=== PATIENT | male | born 1950 | race Caucasian/White ===

== ENCOUNTER 2016-03-27 14:36 | Emergency (ER) | payer BC ==
[~2016-03-27 14:36] MED LIST: /CELE20CA; /ESOM40CA; ALBUTEROL INHALATION; ASPIRIN PO; ATOR1TAB21 PO; CELE50CA; CENTTAB PO; CIPR500T19; COLA100C2 OR; COUM1TAB19 PO; COUM2TAB10 PO; COUMADIN PO; CRESTOR PO; FENOFIBRATE PO; FISH1000 PO; FLAG500T; FLEXERIL10 PO; FOLI1TAB; FOLI1TAB2 PO; GABA300C3 PO; KLON0.5T PO; KLONIPIN PO; LISI10TA4 PO; LISIPOW PO; MAGN250T11 PO; METF500T PO; METH2.5T; METH2.5TA PO; METO25TA2 PO; METO25TA74 PO; MIRA33504 PO; MULT1TAB8 PO; MYLI40DR OR; NABUPOW PO; NAPROSY500 PO; NEXI40CA PO; OREN1INJ SC; ORENCIA IV; PREG50CA OR; QUININE325 PO; REQU0.5T PO; RHINOAEROS; TESSALO100 PO; TYLENOL PO; ULTRAM50 PO; VALS40TA; VICO5TAB OR; VITA-122 PO; ZITHROM500 PO
--- NOTE | 2016-03-27 17:18 | EDDOCDS ---
Nurse's Notes [facility] Name: Yousif Lees Age: 65 yrs Sex: Male : 1950 Arrival Date: 03/27/2016 Time: 14:36 Bed PR Private MD: Dolly Addison PA-C Diagnosis: Contusion of right foot Presentation: 03/27 14:47 Presenting complaint: Patient states: pt c/o right foot pain x 1 week. Denies known ead injury or wound. States "it's got big, black spots on it.". Adult Sepsis Screening: The patient does not have new or worsening altered mentation. Patient's respiratory rate is less than 22. Systolic blood pressure is greater than 100. Patient has a qSOFA score of 0- Negative Sepsis Screen. Suicide/Homicide risk assessment- the patient denies having any suicidal and/or homicidal ideations and does not present with any other emotional, behavioral or mental health complaints. Status: Patient is not a business services vice president or dependent. Transition of care: patient was not received from another setting of care. 14:47 Acuity: KRISTEN Level 4 ead 14:47 Method Of Arrival: Walkin/Carried/Asstd ead Triage Assessment: 14:52 General: Appears in no apparent distress, comfortable, well nourished, well groomed, ead Behavior is appropriate for age, cooperative. Pain: Location: right foot Pain currently is 6 out of 10 on a pain scale. HIV screening NA for this visit Offered previously. Derm: Reports "big, black spots.". Musculoskeletal: Reports pain in right foot since 1 week ago. Historical: - Allergies: no known allergies; - Home Meds: 1. warfarin 2 mg Oral tab 1 tab once daily 2. Centrum Silver 0.4-300-250 mg-mcg-mcg oral tab 1 tab daily 3. Fish Oil 4000 units Oral daily 4. folic acid 1 mg Oral tab 1 tab once daily 5. Klonopin 0.5 mg Oral tab 2 tabs nightly 6. lisinopril 10 mg Oral tab 1 tab once daily 7. metformin 500 mg Oral tr24 1 tab twice a day 8. Methotrexate (Anti-Rheumatic) Oral 2.5 mg weekly 9. metoprolol tartrate 50 mg Oral tab 1 tab once daily 10. Nexium 40 mg Oral cpDR 1 cap once daily 11. Orencia 250 mcg monthly 12. Requip 0.5 mg Oral tab 2 tabs nightly 13. Cymbalta 60 mg Oral cpDR 1 cap once daily - PMHx: Diabetes - NIDDM: controlled; Hypertension; Rheumatoid Arthritis; GERD; Diverticulitis; "clonic disorder."; - PSHx: Aortic Valve Replacement, Mechanical (September 27, 2010); Colon Resection; Hernia repair; - Social history: Smoking status: Patient states former smoker of tobacco. No barriers to communication noted, The patient speaks fluent Taiwanese, Speaks appropriately for age. - Family history: Not pertinent. - : The pt / caregiver states he / she is on anticoagulants: coumadin. Home medication list is obtained from the patient, [employer] import data. - Exposure Risk Screening:: None identified. Screenin:16 Screening information is obtained from the patient. Fall risk: No risks identified. mlb1 Assistance ADL's: requires no assistance with activities of daily living. Abuse/DV Screen: The patient / caregiver reports he/she is: not in a situation that causes fear, pain or injury. Nutritional screening: No deficits noted. Advance Directives: Currently, there is no health care proxy. home support is adequate. Assessment: 16:15 General: Appears in no apparent distress, comfortable, Behavior is appropriate for age, ead cooperative, pleasant. Neurological: No deficits noted. Musculoskeletal: Range of motion intact in all extremities. Reports pain in right foot. 17:15 General: Appears in no apparent distress, comfortable, Behavior is appropriate for age, mlb1 cooperative. Pain: Location: right foot Pain currently is 6 out of 10 on a pain scale. Neurological: No deficits noted. Musculoskeletal: Range of motion intact in all extremities. Vital Signs: 14:37 BP 135 / 68; Pulse 66; Resp 18 S; Temp 96.0(O); Pulse Ox 99% on R/A; Weight 83.91 kg gr2 (R); Height 5 ft. 6 in. (167.64 cm) (R); Pain 7/10; 17:16 BP 170 / 90 RA Sitting (auto/reg); Pulse 68; Resp 16; Temp 98.6; Pulse Ox 98% ; Pain jrd 5/10; 14:37 Body Mass Index 29.86 (83.91 kg, 167.64 cm) gr2 Vitals: 14:37 Log In Time: March 27, 2016 at 14:37. gr2 ED Course: 14:37 Patient visited by Ran Herrera. gr2 14:37 Dolly Addison is Private Physician. gr2 14:37 Patient moved to Waiting gr2 14:38 Patient moved to Pre RCE sew 14:39 Patient visited by Ran Herrera. gr2 14:48 Triage Initiated ead 15:28 Patient moved to Triage 3 mlb1 15:29 Patient visited by Trupti Laird,FLOR. ead 16:11 Patient visited by Yas Díaz,FLOR. ck1 16:13 Danny Ramirez PA is PHCP. mo1 16:13 Roya Khanna MD is Attending Physician. mo1 16:15 The patient / caregiver is instructed regarding the plan of care and ED course. ead 16:19 Patient visited by Danny Ramirez PA. mo1 16:24 Patient moved to TR2 ead 16:58 [facility] Payment Agreement was scanned into [employer] and attached to record. gjb 16:59 Patient visited by Yas Díaz,FLOR. ck1 16:59 Patient moved to PR1 / 25 ck1 17:09 Dolly Addison is Referral Physician. mo1 17:16 Patient visited by Rogelio Marley PCA. jrd 17:16 No IV's were initiated during this patient's visit. No procedures done that require mlb1 assistance. 17:17 Patient visited by Danny Hudson RN. mlb1 Order Results: There are currently no results for this order. Outcome: 17:10 Discharge ordered by Provider. mo1 17:16 Discharge Assessment: Patient awake, alert and oriented x 3. No cognitive and/or mlb1 functional deficits noted. Patient verbalized understanding of disposition instructions. patient administered narcotics - no. The following High Risk Discharge criteria are identified: None. Discharged to home ambulatory. Condition: good. Discharge instructions given to patient, Instructed on discharge instructions, follow up and referral plans. medication usage, no driving heavy equipment, Demonstrated understanding of instructions, medications, Pt was receptive of discharge instructions/ teaching. Prescriptions given X 1. No special radiology studies were completed. Property sent home with patient. 17:17 Patient left the ED. mlb1 Signatures: Danny Hudson, RN RN mlb1 Yas Díaz,RN RN ck1 Roya Foy Gainslee gr2 Danny Ramirez PA PA mo1 Trupti Laird,RN RN courtd Rogelio Marley, [employer] MANAGER d Belia Robbins MTDD
--- NOTE | 2016-03-27 17:18 | EDDOCDS ---
Physician Documentation [facility] Name: Yousif Lees Age: 65 yrs Sex: Male : 1950 Arrival Date: 03/27/2016 Time: 14:36 Bed PR Private MD: Dolly Addison PA-C Disposition: 03/27/16 17:10 Discharged to Home/Self Care. Impression: Contusion of right foot. - Condition is Stable. - Discharge Instructions: Elastic Bandage and RICE, Foot Contusion. - Prescriptions for Drewsey 5- 325 mg Oral Tablet - take 1 tablet by ORAL route every 6 hours As needed MDD: 4 tabs; 12 tablet. - Medication Reconciliation, Local Pharmacy Hours form. - Follow up: Dolly Addison; When: Call to arrange an appointment; Reason: Recheck today's complaints, Continuance of care. - Problem is new. - Symptoms are unchanged. Historical: - Allergies: no known allergies; - Home Meds: 1. warfarin 2 mg Oral tab 1 tab once daily 2. Centrum Silver 0.4-300-250 mg-mcg-mcg oral tab 1 tab daily 3. Fish Oil 4000 units Oral daily 4. folic acid 1 mg Oral tab 1 tab once daily 5. Klonopin 0.5 mg Oral tab 2 tabs nightly 6. lisinopril 10 mg Oral tab 1 tab once daily 7. metformin 500 mg Oral tr24 1 tab twice a day 8. Methotrexate (Anti-Rheumatic) Oral 2.5 mg weekly 9. metoprolol tartrate 50 mg Oral tab 1 tab once daily 10. Nexium 40 mg Oral cpDR 1 cap once daily 11. Orencia 250 mcg monthly 12. Requip 0.5 mg Oral tab 2 tabs nightly 13. Cymbalta 60 mg Oral cpDR 1 cap once daily - PMHx: Diabetes - NIDDM: controlled; Hypertension; Rheumatoid Arthritis; GERD; Diverticulitis; "clonic disorder."; - PSHx: Aortic Valve Replacement, Mechanical (September 27, 2010); Colon Resection; Hernia repair; - Social history: Smoking status: Patient states former smoker of tobacco. No barriers to communication noted, The patient speaks fluent [place] Islander, Speaks appropriately for age. - Family history: Not pertinent. - : The pt / caregiver states he / she is on anticoagulants: coumadin. Home medication list is obtained from the patient, [employer] import data. - Exposure Risk Screening:: None identified. Vital Signs: 03/27 14:37 BP 135 / 68; Pulse 66; Resp 18 S; Temp 96.0(O); Pulse Ox 99% on R/A; Weight 83.91 kg / gr2 184.99 lbs (R); Height 5 ft. 6 in. (167.64 cm) (R); Pain 7/10; 17:16 BP 170 / 90 RA Sitting (auto/reg); Pulse 68; Resp 16; Temp 98.6; Pulse Ox 98% ; Pain jrd 5/10; 14:37 Body Mass Index 29.86 (83.91 kg, 167.64 cm) gr2 MDM: 16:22 Calcaneus Ordered. [facility] 16:58 [facility] [place] Agreement was scanned into [employer] and attached to record. serina 16:58 Financial registration complete. kanika Signatures: Dispatcher [employer] EDCA Danny Hudson RN RN mlb1 Danny Ramirez PA PA mo1 Trupti Laird,RN RN Belia Ellis The chart was reviewed and I authenticate all verbal orders and agree with the evaluation and treatment provided.Attachments: 16:58 [facility] [place] [facility] ALISSA
--- NOTE | 2016-03-27 17:29 | REP ---
RIGHT OS CALCIS, TWO VIEWS: HISTORY: Hematoma. There is no acute fracture or dislocation. An osteophyte is present on the inferior calcaneus. Soft tissue swelling is present. IMPRESSION: There is no acute fracture or dislocation. Signed by Joey Gaytan MD 03/28/2016 08:43 A
--- NOTE | 2016-03-29 18:19 | EDDOCDS ---
Physician Documentation [facility] Name: Yousif Lees Age: 65 yrs Sex: Male : 1950 Arrival Date: 03/27/2016 Time: 14:36 Bed PR Private MD: Dolly Addison PA-C Disposition: 03/27/16 17:10 Discharged to Home/Self Care. Impression: Contusion of right foot. - Condition is Stable. - Discharge Instructions: Elastic Bandage and RICE, Foot Contusion. - Prescriptions for Rowe 5- 325 mg Oral Tablet - take 1 tablet by ORAL route every 6 hours As needed MDD: 4 tabs; 12 tablet. - Medication Reconciliation, Local Pharmacy Hours form. - Follow up: Dolly Addison; When: Call to arrange an appointment; Reason: Recheck today's complaints, Continuance of care. - Problem is new. - Symptoms are unchanged. Historical: - Allergies: no known allergies; - Home Meds: 1. warfarin 2 mg Oral tab 1 tab once daily 2. Centrum Silver 0.4-300-250 mg-mcg-mcg oral tab 1 tab daily 3. Fish Oil 4000 units Oral daily 4. folic acid 1 mg Oral tab 1 tab once daily 5. Klonopin 0.5 mg Oral tab 2 tabs nightly 6. lisinopril 10 mg Oral tab 1 tab once daily 7. metformin 500 mg Oral tr24 1 tab twice a day 8. Methotrexate (Anti-Rheumatic) Oral 2.5 mg weekly 9. metoprolol tartrate 50 mg Oral tab 1 tab once daily 10. Nexium 40 mg Oral cpDR 1 cap once daily 11. Orencia 250 mcg monthly 12. Requip 0.5 mg Oral tab 2 tabs nightly 13. Cymbalta 60 mg Oral cpDR 1 cap once daily - PMHx: Diabetes - NIDDM: controlled; Hypertension; Rheumatoid Arthritis; GERD; Diverticulitis; "clonic disorder."; - PSHx: Aortic Valve Replacement, Mechanical (September 27, 2010); Colon Resection; Hernia repair; - Social history: Smoking status: Patient states former smoker of tobacco. No barriers to communication noted, The patient speaks fluent Brazilian, Speaks appropriately for age. - Family history: Not pertinent. - : The pt / caregiver states he / she is on anticoagulants: coumadin. Home medication list is obtained from the patient, [employer] import data. - Exposure Risk Screening:: None identified. Vital Signs: 03/27 14:37 BP 135 / 68; Pulse 66; Resp 18 S; Temp 96.0(O); Pulse Ox 99% on R/A; Weight 83.91 kg / gr2 184.99 lbs (R); Height 5 ft. 6 in. (167.64 cm) (R); Pain 7/10; 17:16 BP 170 / 90 RA Sitting (auto/reg); Pulse 68; Resp 16; Temp 98.6; Pulse Ox 98% ; Pain jrd 5/10; 14:37 Body Mass Index 29.86 (83.91 kg, 167.64 cm) gr2 MDM: 16:22 Calcaneus Ordered. [facility] 16:58 [facility] [place] Payment Agreement was scanned into [employer] and attached to record. [facility] 16:58 Financial registration complete. [facility] 03/28 11:05 T-Sheet-- Draft Copy was scanned into [employer] and attached to record. gb Signatures: Dispatcher [employer] EDMS Zhane Maynard, Reg Reg gb Danny Hudson, RN RN mlb1 Danny Ramirez PA PA mo1 Trupti Laird,RN RN Belia Ellis The chart was reviewed and I authenticate all verbal orders and agree with the evaluation and treatment provided.Attachments: 03/27 16:58 [facility] [place] Payment Agreement [facility] 03/28 11:05 T-Sheet-- Draft Copy gb Chart Complete MTDD
--- NOTE | 2016-03-29 18:19 | EDDOCDS ---
Physician Documentation [facility] Name: Yousif Lees Age: 65 yrs Sex: Male : 1950 Arrival Date: 03/27/2016 Time: 14:36 Bed PR Private MD: Dolly Addison PA-C Disposition: 03/27/16 17:10 Discharged to Home/Self Care. Impression: Contusion of right foot. - Condition is Stable. - Discharge Instructions: Elastic Bandage and RICE, Foot Contusion. - Prescriptions for Mershon 5- 325 mg Oral Tablet - take 1 tablet by ORAL route every 6 hours As needed MDD: 4 tabs; 12 tablet. - Medication Reconciliation, Local Pharmacy Hours form. - Follow up: Dolly Addison; When: Call to arrange an appointment; Reason: Recheck today's complaints, Continuance of care. - Problem is new. - Symptoms are unchanged. Historical: - Allergies: no known allergies; - Home Meds: 1. warfarin 2 mg Oral tab 1 tab once daily 2. Centrum Silver 0.4-300-250 mg-mcg-mcg oral tab 1 tab daily 3. Fish Oil 4000 units Oral daily 4. folic acid 1 mg Oral tab 1 tab once daily 5. Klonopin 0.5 mg Oral tab 2 tabs nightly 6. lisinopril 10 mg Oral tab 1 tab once daily 7. metformin 500 mg Oral tr24 1 tab twice a day 8. Methotrexate (Anti-Rheumatic) Oral 2.5 mg weekly 9. metoprolol tartrate 50 mg Oral tab 1 tab once daily 10. Nexium 40 mg Oral cpDR 1 cap once daily 11. Orencia 250 mcg monthly 12. Requip 0.5 mg Oral tab 2 tabs nightly 13. Cymbalta 60 mg Oral cpDR 1 cap once daily - PMHx: Diabetes - NIDDM: controlled; Hypertension; Rheumatoid Arthritis; GERD; Diverticulitis; "clonic disorder."; - PSHx: Aortic Valve Replacement, Mechanical (September 27, 2010); Colon Resection; Hernia repair; - Social history: Smoking status: Patient states former smoker of tobacco. No barriers to communication noted, The patient speaks fluent Taiwanese, Speaks appropriately for age. - Family history: Not pertinent. - : The pt / caregiver states he / she is on anticoagulants: coumadin. Home medication list is obtained from the patient, [employer] import data. - Exposure Risk Screening:: None identified. Vital Signs: 03/27 14:37 BP 135 / 68; Pulse 66; Resp 18 S; Temp 96.0(O); Pulse Ox 99% on R/A; Weight 83.91 kg / gr2 184.99 lbs (R); Height 5 ft. 6 in. (167.64 cm) (R); Pain 7/10; 17:16 BP 170 / 90 RA Sitting (auto/reg); Pulse 68; Resp 16; Temp 98.6; Pulse Ox 98% ; Pain jrd 5/10; 14:37 Body Mass Index 29.86 (83.91 kg, 167.64 cm) gr2 MDM: 16:22 Calcaneus Ordered. [facility] 16:58 [facility] [place] was scanned into [employer] and attached to record. [facility] 16:58 Financial registration complete. [facility] 03/28 11:05 T-Sheet-- Draft Copy was scanned into [employer] and attached to record. gb Signatures: Dispatcher [employer] EDMS Zhane Maynard, Reg Reg gb Danny Hudson, RN RN mlb1 Danny Ramirez PA PA mo1 Trupti Laird,RN RN Belia Ellis The chart was reviewed and I authenticate all verbal orders and agree with the evaluation and treatment provided.Attachments: 03/27 16:58 [facility] [place] [facility] 03/28 11:05 T-Sheet-- Draft Copy gb Chart Complete MTDD
--- NOTE | 2016-03-29 18:20 | EDDOCDS ---
Nurse's Notes [facility] Name: Yousif Lees Age: 65 yrs Sex: Male : 1950 Arrival Date: 03/27/2016 Time: 14:36 Bed PR Private MD: Dolly Addison PA-C Diagnosis: Contusion of right foot Presentation: 03/27 14:47 Presenting complaint: Patient states: pt c/o right foot pain x 1 week. Denies known ead injury or wound. States "it's got big, black spots on it.". Adult Sepsis Screening: The patient does not have new or worsening altered mentation. Patient's respiratory rate is less than 22. Systolic blood pressure is greater than 100. Patient has a qSOFA score of 0- Negative Sepsis Screen. Suicide/Homicide risk assessment- the patient denies having any suicidal and/or homicidal ideations and does not present with any other emotional, behavioral or mental health complaints. Status: Patient is not a medical service technician or dependent. Transition of care: patient was not received from another setting of care. 14:47 Acuity: KRISTEN Level 4 ead 14:47 Method Of Arrival: Walkin/Carried/Asstd ead Triage Assessment: 14:52 General: Appears in no apparent distress, comfortable, well nourished, well groomed, ead Behavior is appropriate for age, cooperative. Pain: Location: right foot Pain currently is 6 out of 10 on a pain scale. HIV screening NA for this visit Offered previously. Derm: Reports "big, black spots.". Musculoskeletal: Reports pain in right foot since 1 week ago. Historical: - Allergies: no known allergies; - Home Meds: 1. warfarin 2 mg Oral tab 1 tab once daily 2. Centrum Silver 0.4-300-250 mg-mcg-mcg oral tab 1 tab daily 3. Fish Oil 4000 units Oral daily 4. folic acid 1 mg Oral tab 1 tab once daily 5. Klonopin 0.5 mg Oral tab 2 tabs nightly 6. lisinopril 10 mg Oral tab 1 tab once daily 7. metformin 500 mg Oral tr24 1 tab twice a day 8. Methotrexate (Anti-Rheumatic) Oral 2.5 mg weekly 9. metoprolol tartrate 50 mg Oral tab 1 tab once daily 10. Nexium 40 mg Oral cpDR 1 cap once daily 11. Orencia 250 mcg monthly 12. Requip 0.5 mg Oral tab 2 tabs nightly 13. Cymbalta 60 mg Oral cpDR 1 cap once daily - PMHx: Diabetes - NIDDM: controlled; Hypertension; Rheumatoid Arthritis; GERD; Diverticulitis; "clonic disorder."; - PSHx: Aortic Valve Replacement, Mechanical (September 27, 2010); Colon Resection; Hernia repair; - Social history: Smoking status: Patient states former smoker of tobacco. No barriers to communication noted, The patient speaks fluent [place], Speaks appropriately for age. - Family history: Not pertinent. - : The pt / caregiver states he / she is on anticoagulants: coumadin. Home medication list is obtained from the patient, [employer] import data. - Exposure Risk Screening:: None identified. Screenin:16 Screening information is obtained from the patient. Fall risk: No risks identified. mlb1 Assistance ADL's: requires no assistance with activities of daily living. Abuse/DV Screen: The patient / caregiver reports he/she is: not in a situation that causes fear, pain or injury. Nutritional screening: No deficits noted. Advance Directives: Currently, there is no health care proxy. home support is adequate. Assessment: 16:15 General: Appears in no apparent distress, comfortable, Behavior is appropriate for age, ead cooperative, pleasant. Neurological: No deficits noted. Musculoskeletal: Range of motion intact in all extremities. Reports pain in right foot. 17:15 General: Appears in no apparent distress, comfortable, Behavior is appropriate for age, mlb1 cooperative. Pain: Location: right foot Pain currently is 6 out of 10 on a pain scale. Neurological: No deficits noted. Musculoskeletal: Range of motion intact in all extremities. Vital Signs: 14:37 BP 135 / 68; Pulse 66; Resp 18 S; Temp 96.0(O); Pulse Ox 99% on R/A; Weight 83.91 kg gr2 (R); Height 5 ft. 6 in. (167.64 cm) (R); Pain 7/10; 17:16 BP 170 / 90 RA Sitting (auto/reg); Pulse 68; Resp 16; Temp 98.6; Pulse Ox 98% ; Pain jrd 5/10; 14:37 Body Mass Index 29.86 (83.91 kg, 167.64 cm) gr2 Vitals: 14:37 Log In Time: March 27, 2016 at 14:37. gr2 ED Course: 14:37 Patient visited by Ran Herrera. gr2 14:37 Dolly Addison is Private Physician. gr2 14:37 Patient moved to Waiting gr2 14:38 Patient moved to Pre RCE sew 14:39 Patient visited by Ran Herrera. gr2 14:48 Triage Initiated ead 15:28 Patient moved to Triage 3 mlb1 15:29 Patient visited by Trupti Laird,RN. ead 16:11 Patient visited by Yas Díaz,FLOR. ck1 16:13 Danny Ramirez PA is PHCP. mo1 16:13 Roya Khanna MD is Attending Physician. mo1 16:15 The patient / caregiver is instructed regarding the plan of care and ED course. ead 16:19 Patient visited by Danny Ramirez PA. mo1 16:24 Patient moved to TR2 ead 16:58 [facility] Payment Agreement was scanned into [employer] and attached to record. gjb 16:59 Patient visited by Yas Díaz,FLOR. ck1 16:59 Patient moved to PR1 / 25 ck1 17:09 Dolly Addison is Referral Physician. mo1 17:16 Patient visited by Rogelio Marley PCA. jrd 17:16 No IV's were initiated during this patient's visit. No procedures done that require mlb1 assistance. 17:17 Patient visited by Danny Hudson RN. mlb1 18:10 Calcaneus Returned. EDMS 03/28 11:05 T-Sheet-- Draft Copy was scanned into [employer] and attached to record. gb Order Results: Radiology Order: Calcaneus Test: Calcaneus REASON FOR EXAMINATION: plantar hematoma calcaneal; RIGHT OS CALCIS, TWO VIEWS:; ; HISTORY: Hematoma.; ; There is no acute fracture or dislocation. An osteophyte is present on the; inferior calcaneus. Soft tissue swelling is present.; ; IMPRESSION:; ; There is no acute fracture or dislocation.; ; ; Signed by; Joey Gaytan MD 03/28/2016 08:43 A; Outcome: 03/27 17:10 Discharge ordered by Provider. mo1 17:16 Discharge Assessment: Patient awake, alert and oriented x 3. No cognitive and/or mlb1 functional deficits noted. Patient verbalized understanding of disposition instructions. patient administered narcotics - no. The following High Risk Discharge criteria are identified: None. Discharged to home ambulatory. Condition: good. Discharge instructions given to patient, Instructed on discharge instructions, follow up and referral plans. medication usage, no driving heavy equipment, Demonstrated understanding of instructions, medications, Pt was receptive of discharge instructions/ teaching. Prescriptions given X 1. No special radiology studies were completed. Property sent home with patient. 17:17 Patient left the ED. mlb1 Signatures: Dispatcher [employer] EDMS Zhane Maynard, Prosper Reg Danny Belcher RN RN mlb1 Yas Díaz RN RN ck1 Roya Foy Gainslee gr2 Danny Ramirez PA PA mo1 Trupti Laird,RN RN Rogelio Lee PCA PCA jrd Beck, Gabriela gjb Chart Complete ALISSA
== END 2016-03-27 17:17 | disposition home or self-care (01) ==
LOC: M ED 14:36
DX: S90.31XA Contusion of right foot, initial encounter (principal); X58.XXXA Exposure to other specified factors, initial encounter; Y92.019 Unspecified place in single-family (private) house as the place of occurrence of the external cause; Y93.89 Activity, other specified; Y99.8 Other external cause status; M77.31 Calcaneal spur, right foot; E11.9 Type 2 diabetes mellitus without complications; I10 Essential (primary) hypertension; M05.40 Rheumatoid myopathy with rheumatoid arthritis of unspecified site; K21.9 Gastro-esophageal reflux disease without esophagitis; K57.32 Diverticulitis of large intestine without perforation or abscess without bleeding; G40.909 Epilepsy, unspecified, not intractable, without status epilepticus; Z79.01 Long term (current) use of anticoagulants; Z79.84 Long term (current) use of oral hypoglycemic drugs; Z79.899 Other long term (current) drug therapy

== ENCOUNTER → 2016-05-09 | Outpatient (REF) | payer BC ==
[2016-05-09 13:10] LABS: BASO % 0.8 % (0.0-1.0); EOS # 0.1 K/mm3 (0.0-0.50); EOS % 2.4 % (0.0-3.0); LARGE UNSTAINED CELL # 0.1 K/mm3 (0.0-0.4); LARGE UNSTAINED CELL % 2.5 % (0.0-4.0); LYMPH # 1.7 K/mm3 (1.5-4.5); LYMPH % 29.2 % (24.0-44.0); MEAN CORPUSCULAR HEMOGLOBIN 31.2 pg (27.0-33.0); MEAN CORPUSCULAR HGB CONC 34.6 g/dl (32.0-36.5); MEAN CORPUSCULAR VOLUME 90.2 fl (80.0-96.0); MONO # 0.6 K/mm3 (0.0-0.8); MONO % 10.8 % (0.0-5.0); NEUTROPHILS % 54.3 % (36.0-66.0); PLATELET COUNT, AUTOMATED 181 k/mm3 (150-450); WHITE BLOOD COUNT 5.4 K/mm3 (4.0-10.0)
[2016-05-09 13:25] LABS: ALBUMIN/GLOBULIN RATIO 1.43 (1.00-1.93); ALKALINE PHOSPHATASE 66 U/L (45-117); ALT/SGPT 33 U/L (12-78); ANION GAP 9 MEQ/L (8-16); AST/SGOT 22 U/L (15-37); BILIRUBIN,TOTAL 0.5 MG/DL (0.2-1.0); BLOOD UREA NITROGEN 10 MG/DL (7-18); CALCIUM LEVEL 9.4 MG/DL (8.8-10.2); CARBON DIOXIDE LEVEL 30 MEQ/L (21-32); CHLORIDE LEVEL 103 MEQ/L (98-107); CHOLESTEROL LEVEL 224 MG/DL (<200); CREATININE FOR GFR 0.87 MG/DL (0.70-1.30); GLOMERULAR FILTRATION RATE > 60.0 (>49); GLUCOSE, FASTING 115 MG/DL (80-110); SODIUM LEVEL 142 MEQ/L (136-145); TOTAL PROTEIN 6.8 GM/DL (6.4-8.2); TRIGLYCERIDES LEVEL 177 MG/DL (<150)
[2016-05-09 13:27] LABS: POTASSIUM SERUM 5.3 MEQ/L (3.5-5.1)
== END ==
LOC: M SFHCADAM 08:02
PROVIDERS: ATTEND Family Medicine
DX: E11.9 Type 2 diabetes mellitus without complications (principal)

== ENCOUNTER → 2016-06-09 | Outpatient (CLI) | payer BC ==
[~2016-06-09] MED LIST changes: +GABA-282 PO; -GABA300C3 PO; +ISOVUE-370 76% 100ML VIAL (Q9967) As Ordered ONE
--- NOTE | 2016-06-09 09:27 | REP ---
CT ANGIOGRAM ABDOMEN AND BILATERAL LOWER EXTREMITIES: CT angiogram abdominal aorta and bilateral lower extremities performed following the intravenous administration of 100 mL of Isovue 370. Sagittal, coronal and MIP reconstruction images performed. There is bibasilar fibroatelectatic change in the lung bases. Calcified granuloma is seen in the right lower lobe. The liver, spleen, adrenals and pancreas appear unremarkable. Subcentimeter cyst is seen in the upper pole of the right kidney. There is no free air or free fluid. There is no bowel wall thickening. Scattered diverticula are seen of the colon. There is no adenopathy. There are mild atherosclerotic calcifications of the abdominal aorta diffusely. There is no aneurysm. There is mild ectasia of the distal abdominal aorta 2.6 cm in AP dimension. Celiac, superior mesenteric and inferior mesenteric arteries are widely patent. Renal arteries are widely patent. There is mild diffuse atherosclerotic calcifications in both common iliac arteries without significant stenosis. Internal iliac arteries are patent bilaterally. There is minimal narrowing of the bilateral external iliac arteries and mild narrowing is seen of the bilateral common femoral arteries. Superficial femoral arteries are widely patent and seen down to the level of the knees. There is no significant stenosis. Right popliteal artery is not visualized, nor are the calf arteries. The left popliteal artery is widely patent. There is mild narrowing of the common peroneal trunk. The anterior tibial, posterior tibial and peroneal arteries are patent but visualization is lost just distal to their origins due to suboptimal contrast bolus with scanning slightly early in the bolus. There is a fluid collection in the iliopsoas muscle which measures approximately 7.2 x 1.9 x 2.2 cm. This most likely represents iliopsoas bursitis. It is not seen on prior CT exams most recently 08/18/2015. There is no high density within the fluid to suggest hemorrhage and no evidence of inflammatory change to suggest abscess. IMPRESSION: No significant stenosis of right lower extremity arteries down to the level of the knee or left lower extremity arteries down to the origin of the trifurcation vessels. Arteries distal to that are not opacified, with early scanning in the contrast bolus. There is also no significant stenosis of intra-abdominal arteries. Left iliopsoas bursitis. Signed by Hoang Gonsalves MD 06/09/2016 03:52 P
== END ==
LOC: M RAD 07:10
PROVIDERS: ATTEND Surgery
DX: E11.621 Type 2 diabetes mellitus with foot ulcer (principal); J98.4 Other disorders of lung; N28.1 Cyst of kidney, acquired
CPT/HCPCS: 75635; Q9967

== ENCOUNTER → 2016-08-18 | Outpatient (REF) | payer BC ==
[~2016-08-18] MED LIST changes: -ISOVUE-370 76% 100ML VIAL (Q9967) As Ordered ONE
[2016-08-18 10:55] LABS: ALBUMIN 3.7 GM/DL (3.2-5.2); ALBUMIN/GLOBULIN RATIO 1.23 (1.00-1.93); ALKALINE PHOSPHATASE 64 U/L (45-117); ALT/SGPT 28 U/L (12-78); ANION GAP 7 MEQ/L (8-16); AST/SGOT 15 U/L (15-37); BILIRUBIN,TOTAL 0.3 MG/DL (0.2-1.0); BLOOD UREA NITROGEN 19 MG/DL (7-18); CARBON DIOXIDE LEVEL 30 MEQ/L (21-32); CHLORIDE LEVEL 104 MEQ/L (98-107); CHOLESTEROL LEVEL 191 MG/DL (<200); GLOMERULAR FILTRATION RATE > 60.0 (>49); GLUCOSE, FASTING 105 MG/DL (80-110); POTASSIUM SERUM 4.9 MEQ/L (3.5-5.1); SODIUM LEVEL 141 MEQ/L (136-145); TOTAL PROTEIN 6.7 GM/DL (6.4-8.2); TRIGLYCERIDES LEVEL 144 MG/DL (<150)
[2016-08-18 11:19] LABS: VITAMIN B12 LEVEL 862 PG/ML
[2016-08-18 11:20] LABS: FOLATE 19.4 NG/ML
== END ==
LOC: M SFHCADAM 08:08
PROVIDERS: ATTEND Family Medicine
DX: R41.0 Disorientation, unspecified (principal); E11.9 Type 2 diabetes mellitus without complications; E78.5 Hyperlipidemia, unspecified

== ENCOUNTER → 2016-08-22 | Outpatient (CLI) | payer BC ==
[2016-08-26 08:06] LABS: PSA TOTAL 0.5 ng/mL (0.0-4.0)
== END ==
LOC: M SMT 11:44
PROVIDERS: ATTEND Urology
DX: Z85.51 Personal history of malignant neoplasm of bladder (principal)

== ENCOUNTER → 2016-10-01 | Outpatient (CLI) | payer BC ==
[~2016-10-01] MED LIST changes: -COUM2TAB10 PO; +COUM2TAB22 PO; -FOLI1TAB2 PO; +FOLI1TAB4 PO; -METF500T PO; +METF500T13 PO; +METO1TAB32 PO; -METO25TA74 PO; -REQU0.5T PO; +REQU1TAB15 PO
--- NOTE | 2016-10-02 07:15 | REP ---
Clinical: Cognitive impairment . Comparison: None . Findings: The ventricles, sulci, and cisterns are normal in position and appearance. Gonsalves-white differentiation is maintained. No acute intracranial hemorrhage, mass/mass effect, pathology or trauma/injury. No evidence for acute infarction. No extra-axial fluid collection. Calvarium is intact. Paranasal sinuses and mastoid air cells are clear. Impression: Normal noncontrast head CT. No evidence for acute intracranial pathology or trauma/injury. Signed by Zack Cantor MD 10/02/2016 07:05 A
== END ==
LOC: M RAD 14:11
PROVIDERS: ATTEND Psychiatry & Neurology Neurology
DX: G31.84 Mild cognitive impairment of uncertain or unknown etiology (principal)

== ENCOUNTER → 2017-02-11 | Outpatient (REF) | payer BC | LOC: M LABDRWAD 12:21 | PROVIDERS: ATTEND Internal Medicine Rheumatology | DX: M06.09 Rheumatoid arthritis without rheumatoid factor, multiple sites (principal); Z79.899 Other long term (current) drug therapy ==

== ENCOUNTER → 2017-02-11 | Outpatient (REF) | payer BC | LOC: M SFHCADAM 09:24 | PROVIDERS: ATTEND Family Medicine | DX: E11.9 Type 2 diabetes mellitus without complications (principal) ==

== ENCOUNTER → 2017-04-02 | Outpatient (CLI) | payer BC | LOC: M ADAMS 10:08 | DX: R05 Cough (principal) | CPT/HCPCS: 71046 ==

== ENCOUNTER → 2017-04-21 | Outpatient (REF) | payer BC ==
[2017-04-21 15:52] LABS: BASO % 0.4 % (0.0-1.0); EOS # 0.1 10^3/uL (0.0-0.50); EOS % 1.5 % (0.0-3.0); HEMATOCRIT 39.5 % (42.0-52.0); HEMOGLOBIN 13.9 g/dl (14.0-18.0); IMMATURE GRANULOCYTE % 0.7 % (0-3.0); LYMPH # 1.5 10^3/uL (1.5-4.5); LYMPH % 20.6 % (24.0-44.0); MEAN CORPUSCULAR HEMOGLOBIN 31.2 pg (27.0-33.0); MEAN CORPUSCULAR HGB CONC 35.2 g/dl (32.0-36.5); MEAN CORPUSCULAR VOLUME 88.6 fl (80.0-96.0); MONO # 0.6 10^3/uL (0.0-0.8); MONO % 7.8 % (0.0-5.0); NEUTROPHILS # 5.1 10^3/uL (1.8-7.7); PLATELET COUNT, AUTOMATED 175 10^3/uL (150-450); RED BLOOD COUNT 4.46 10^6/uL (4.30-6.10); RED CELL DISTRIBUTION WIDTH 12.3 % (11.5-14.5); WHITE BLOOD COUNT 7.4 10^3/uL (4.0-10.0)
[2017-04-21 16:11] LABS: ERYTHROCYTE SEDIMENTATION RATE 3 mm/hr (0-20)
[2017-04-21 16:20] LABS: ALBUMIN 3.9 GM/DL (3.2-5.2); ALBUMIN/GLOBULIN RATIO 1.44 (1.00-1.93); ALKALINE PHOSPHATASE 63 U/L (45-117); ALT/SGPT 39 U/L (12-78); ANION GAP 5 MEQ/L (8-16); AST/SGOT 20 U/L (7-37); BILIRUBIN,TOTAL 0.4 MG/DL (0.2-1.0); BLOOD UREA NITROGEN 18 MG/DL (7-18); C REACTIVE PROTEIN QUANTITATIV < 0.30 MG/DL (0.00-0.30); CALCIUM LEVEL 9.1 MG/DL (8.8-10.2); CARBON DIOXIDE LEVEL 32 MEQ/L (21-32); CHLORIDE LEVEL 102 MEQ/L (98-107); GLOMERULAR FILTRATION RATE > 60.0 (>49); GLUCOSE, FASTING 124 MG/DL (70-100); POTASSIUM SERUM 4.3 MEQ/L (3.5-5.1); SODIUM LEVEL 139 MEQ/L (136-145); TOTAL PROTEIN 6.6 GM/DL (6.4-8.2)
== END ==
LOC: M LABDRAW1 15:04
DX: M06.09 Rheumatoid arthritis without rheumatoid factor, multiple sites (principal); Z79.899 Other long term (current) drug therapy
CPT/HCPCS: 80053

== ENCOUNTER → 2017-04-22 | Outpatient (REF) | payer BC ==
[2017-04-22 13:46] LABS: BF MONONUCLEAR CELL % 77.3 % (0-0); BF POLYMORPHONUCLEAR CELL % 22.7 % (0-0); RBC BODY FLUID 294 10^3/uL (<2); WBC BODY FLUID 538 /uL (0-10)
[2017-04-22 13:47] LABS: APPEARANCE, BODY FLUID CLOUDY (CLEAR); BF DIFF IF INDICATED? YES (NO); SOURCE, BODY FLUID LFT KNEE; SYNOVIAL FLUID COLOR RED (YELLOW)
[2017-04-22 14:42] LABS: CRYSTALS, BODY FLUID NONE SEEN (NONE SEEN); SOURCE, BODY FLUID CRYSTALS LFT KNEE
== END ==
LOC: M LAB REF 13:20
DX: M71.162 Other infective bursitis, left knee (principal)
CPT/HCPCS: 89051

== ENCOUNTER → 2017-05-04 | Outpatient (REF) | payer BC | LOC: M SMT 17:29 | DX: Z85.51 Personal history of malignant neoplasm of bladder (principal) | CPT/HCPCS: 88108 ==

== ENCOUNTER → 2017-06-19 | Outpatient (REF) | payer BC ==
[2017-06-19 12:58] LABS: BASO # 0.1 10^3/uL (0.0-0.2); BASO % 0.8 % (0.0-1.0); EOS # 0.1 10^3/uL (0.0-0.50); EOS % 2.3 % (0.0-3.0); HEMATOCRIT 38.5 % (42.0-52.0); HEMOGLOBIN 13.1 g/dl (13.5-17.5); IMMATURE GRANULOCYTE % 0.3 % (0-3.0); LYMPH # 1.3 10^3/uL (1.5-4.5); LYMPH % 21.4 % (24.0-44.0); MEAN CORPUSCULAR HEMOGLOBIN 30.8 pg (27.0-33.0); MEAN CORPUSCULAR VOLUME 90.4 fl (80.0-96.0); MONO # 0.6 10^3/uL (0.0-0.8); NEUTROPHILS # 4.1 10^3/uL (1.8-7.7); NEUTROPHILS % 65.2 % (36.0-66.0); PLATELET COUNT, AUTOMATED 183 10^3/uL (150-450); RED BLOOD COUNT 4.26 10^6/uL (4.30-6.10); RED CELL DISTRIBUTION WIDTH 13.7 % (11.5-14.5); WHITE BLOOD COUNT 6.2 10^3/uL (4.0-10.0)
[2017-06-19 13:20] LABS: ESTIMATED AVERAGE GLUCOSE 174 MG/DL (60-110); HEMOGLOBIN A1c 7.7 %
[2017-06-19 13:32] LABS: ALBUMIN/GLOBULIN RATIO 1.48 (1.00-1.93); ALKALINE PHOSPHATASE 61 U/L (45-117); ALT/SGPT 47 U/L (12-78); ANION GAP 4 MEQ/L (8-16); AST/SGOT 23 U/L (7-37); BILIRUBIN,TOTAL 0.6 MG/DL (0.2-1.0); BLOOD UREA NITROGEN 14 MG/DL (7-18); CALCIUM LEVEL 9.2 MG/DL (8.8-10.2); CARBON DIOXIDE LEVEL 30 MEQ/L (21-32); CHLORIDE LEVEL 105 MEQ/L (98-107); GLOMERULAR FILTRATION RATE > 60.0 (>49); GLUCOSE, FASTING 141 MG/DL (70-100); POTASSIUM SERUM 4.6 MEQ/L (3.5-5.1); SODIUM LEVEL 139 MEQ/L (136-145); TOTAL PROTEIN 6.7 GM/DL (6.4-8.2)
== END ==
LOC: M SFHCADAM 12:17
DX: E11.69 Type 2 diabetes mellitus with other specified complication (principal)
CPT/HCPCS: 80053

== ENCOUNTER → 2017-06-24 | Outpatient (REF) | payer BC ==
[2017-06-24 13:35] LABS: CPK CREATINE PHOSPHOKINASE 118 U/L (39-308)
== END ==
LOC: M SFHCADAM 11:17
DX: R25.2 Cramp and spasm (principal)
CPT/HCPCS: 82550

== ENCOUNTER → 2017-09-02 | Outpatient (CLI) | payer BC | LOC: M ADAMS 09:09 | DX: R05 Cough (principal) | CPT/HCPCS: 71046 ==

== ENCOUNTER → 2017-09-17 | Outpatient (REF) | payer BC ==
[2017-09-17 13:08] LABS: ESTIMATED AVERAGE GLUCOSE 174 MG/DL (60-110); HEMOGLOBIN A1c 7.7 %
[2017-09-17 13:13] LABS: ALBUMIN 3.8 GM/DL (3.2-5.2); ALBUMIN/GLOBULIN RATIO 1.41 (1.00-1.93); ALKALINE PHOSPHATASE 61 U/L (45-117); ALT/SGPT 35 U/L (12-78); ANION GAP 8 MEQ/L (8-16); AST/SGOT 18 U/L (7-37); BILIRUBIN,TOTAL 0.4 MG/DL (0.2-1.0); BLOOD UREA NITROGEN 20 MG/DL (7-18); CALCIUM LEVEL 9.1 MG/DL (8.8-10.2); CARBON DIOXIDE LEVEL 28 MEQ/L (21-32); CHLORIDE LEVEL 101 MEQ/L (98-107); CREATININE FOR GFR 0.92 MG/DL (0.70-1.30); GLOMERULAR FILTRATION RATE > 60.0 (>49); GLUCOSE, FASTING 167 MG/DL (70-100); SODIUM LEVEL 137 MEQ/L (136-145); TOTAL PROTEIN 6.5 GM/DL (6.4-8.2)
== END ==
LOC: M SFHCADAM 10:16
DX: E11.69 Type 2 diabetes mellitus with other specified complication (principal); R25.2 Cramp and spasm

== ENCOUNTER → 2017-12-11 | Outpatient (REF) | payer BC ==
[2017-12-11 16:59] LABS: BASO % 0.6 % (0.0-1.0); EOS # 0.1 10^3/uL (0.0-0.50); EOS % 1.4 % (0.0-3.0); HEMATOCRIT 40.8 % (42.0-52.0); HEMOGLOBIN 13.8 g/dl (13.5-17.5); IMMATURE GRANULOCYTE % 1.1 % (0-3.0); LYMPH # 1.5 10^3/uL (1.5-4.5); LYMPH % 22.1 % (24.0-44.0); MEAN CORPUSCULAR HEMOGLOBIN 31.8 pg (27.0-33.0); MEAN CORPUSCULAR HGB CONC 33.8 g/dl (32.0-36.5); MONO # 0.6 10^3/uL (0.0-0.8); NEUTROPHILS # 4.4 10^3/uL (1.8-7.7); NEUTROPHILS % 65.8 % (36.0-66.0); PLATELET COUNT, AUTOMATED 200 10^3/uL (150-450); RED BLOOD COUNT 4.34 10^6/uL (4.30-6.10); RED CELL DISTRIBUTION WIDTH 13.1 % (11.5-14.5); WHITE BLOOD COUNT 6.6 10^3/uL (4.0-10.0)
[2017-12-11 17:02] LABS: ALBUMIN 4.2 GM/DL (3.2-5.2); ALBUMIN/GLOBULIN RATIO 1.62 (1.00-1.93); ALKALINE PHOSPHATASE 50 U/L (45-117); ALT/SGPT 37 U/L (12-78); ANION GAP 4 MEQ/L (8-16); AST/SGOT 15 U/L (7-37); BILIRUBIN,TOTAL 0.3 MG/DL (0.2-1.0); BLOOD UREA NITROGEN 19 MG/DL (7-18); CARBON DIOXIDE LEVEL 30 MEQ/L (21-32); CHLORIDE LEVEL 105 MEQ/L (98-107); CREATININE FOR GFR 0.84 MG/DL (0.70-1.30); GLOMERULAR FILTRATION RATE > 60.0 (>49); GLUCOSE, FASTING 106 MG/DL (70-100); NT-PRO BNP 47 PG/ML (<125); POTASSIUM SERUM 4.6 MEQ/L (3.5-5.1); SODIUM LEVEL 139 MEQ/L (136-145); TOTAL PROTEIN 6.8 GM/DL (6.4-8.2); URIC ACID 5.3 MG/DL (3.5-7.2)
[2017-12-11 17:44] LABS: ERYTHROCYTE SEDIMENTATION RATE 4 mm/hr (0-20)
[2017-12-13 08:35] LABS: HEPATITIS B CORE ANTIBODY IGG Negative (Negative)
[2017-12-14 10:15] LABS: HEPATITIS B SURFACE ANTIBODY NEGATIVE (POSITIVE)
[2017-12-14 10:21] LABS: HEPATITIS B SURFACE ANTIGEN NEGATIVE (NEGATIVE)
[2017-12-14 10:45] LABS: HEPATITIS C VIRUS ABY INDEX < 0.0 INDEX (<0.8)
[2017-12-14 10:46] LABS: HIV 1&2 SCREEN CENTAUR NEGATIVE (NEGATIVE)
== END ==
LOC: M SFHCLERA 10:25
DX: M06.09 Rheumatoid arthritis without rheumatoid factor, multiple sites (principal)
CPT/HCPCS: 84550

== ENCOUNTER → 2017-12-11 | Outpatient (CLI) | payer BC | LOC: M LRY 10:37 | DX: M06.09 Rheumatoid arthritis without rheumatoid factor, multiple sites (principal); M11.161 Familial chondrocalcinosis, right knee; M11.162 Familial chondrocalcinosis, left knee; M17.12 Unilateral primary osteoarthritis, left knee; M19.041 Primary osteoarthritis, right hand; M19.042 Primary osteoarthritis, left hand | CPT/HCPCS: 73130 ==

== ENCOUNTER → 2017-12-14 | Outpatient (REF) | payer BC | LOC: M SMT 17:14 | DX: Z85.51 Personal history of malignant neoplasm of bladder (principal) ==

== ENCOUNTER 2017-12-22 15:05 | Outpatient (CLI) | payer BC ==
[2017-12-22] MEDS: ABATACEPT 750 MG OVER 30 MINUTES IV (15:47)
[2017-12-22] MEDS ORDERED: 0.22 MICRON FILTER (METHACHOLINE/OCREVUS) XX (16:00)
== END 2017-12-22 17:00 | disposition home or self-care (01) ==
LOC: M INFU 15:05
DX: M06.09 Rheumatoid arthritis without rheumatoid factor, multiple sites (principal); M17.0 Bilateral primary osteoarthritis of knee
CPT/HCPCS: J0129

== ENCOUNTER → 2017-12-28 | Outpatient (REF) | payer BC ==
[2017-12-28 14:37] LABS: ESTIMATED AVERAGE GLUCOSE 123 MG/DL (60-110); HEMOGLOBIN A1c 5.9 %
== END ==
LOC: M SFHCADAM 08:42
DX: E11.9 Type 2 diabetes mellitus without complications (principal)
CPT/HCPCS: 83036

== ENCOUNTER 2018-01-19 07:36 | Outpatient (CLI) | payer BC ==
[2018-01-19] MEDS ORDERED: FILTER 1.2 MICRON (ADULT TPN/MANNITOL/REMICADE) XX (08:00)
[2018-01-19] MEDS: ABATACEPT 750 MG OVER 30 MINUTES IV (08:39)
== END 2018-01-19 09:20 | disposition home or self-care (01) ==
LOC: M INFU 07:36
DX: M06.09 Rheumatoid arthritis without rheumatoid factor, multiple sites (principal); M17.0 Bilateral primary osteoarthritis of knee; D72.819 Decreased white blood cell count, unspecified; Z79.899 Other long term (current) drug therapy; Z87.891 Personal history of nicotine dependence; Z86.14 Personal history of Methicillin resistant Staphylococcus aureus infection; Z95.2 Presence of prosthetic heart valve
CPT/HCPCS: J0129

== ENCOUNTER 2018-02-16 07:41 | Outpatient (CLI) | payer BC ==
[2018-02-16] MEDS: ABATACEPT 750 MG OVER 30 MINUTES IV (08:30)
[2018-02-16] MEDS: FILTER 1.2 MICRON (ADULT TPN/MANNITOL/REMICADE) XX (08:30)
== END 2018-02-16 09:30 | disposition home or self-care (01) ==
LOC: M INFU 07:41
DX: M06.09 Rheumatoid arthritis without rheumatoid factor, multiple sites (principal); M17.0 Bilateral primary osteoarthritis of knee
CPT/HCPCS: J0129

== ENCOUNTER 2018-03-16 08:18 | Outpatient (CLI) | payer BC ==
[~2018-03-16] VITALS: Ht 172.7 cm; Wt 97.3 kg
[~2018-03-16 08:18] MED LIST changes: +FOLI1TAB11 PO; -FOLI1TAB4 PO; -GABA-282 PO; +GABA-843 PO; +METH2.5T48 PO; -METH2.5TA PO; +REQU0.5T PO; -REQU1TAB15 PO
[2018-03-16] MEDS ORDERED: FILTER 1.2 MICRON (ADULT TPN/MANNITOL/REMICADE) XX ONE (08:30)
[2018-03-16 08:32] VITALS: BP 150/74
[2018-03-16] MEDS ORDERED: ABATACEPT 750 MG OVER 30 MINUTES IV ONE ×2 (09:00)
[2018-03-16 09:33] VITALS: BP 144/77
[2018-03-16 09:55] VITALS: BP 164/77
== END 2018-03-16 10:00 | disposition home or self-care (01) ==
LOC: M INFU 08:18
PROVIDERS: ATTEND Internal Medicine Rheumatology
DX: M06.09 Rheumatoid arthritis without rheumatoid factor, multiple sites (principal); M17.0 Bilateral primary osteoarthritis of knee
CPT/HCPCS: 96365; J0129

== ENCOUNTER → 2018-03-24 | Outpatient (REF) | payer BC ==
[2018-03-24 13:16] LABS: BASO # 0.1 10^3/uL (0.0-0.2); BASO % 0.7 % (0.0-1.0); EOS # 0.1 10^3/uL (0.0-0.50); EOS % 1.8 % (0.0-3.0); HEMATOCRIT 40.1 % (42.0-52.0); HEMOGLOBIN 13.9 g/dl (13.5-17.5); LYMPH # 1.7 10^3/uL (1.5-4.5); LYMPH % 23.8 % (24.0-44.0); MEAN CORPUSCULAR HEMOGLOBIN 31.7 pg (27.0-33.0); MEAN CORPUSCULAR HGB CONC 34.7 g/dl (32.0-36.5); MEAN CORPUSCULAR VOLUME 91.6 fl (80.0-96.0); MONO # 0.8 10^3/uL (0.0-0.8); MONO % 11.8 % (0.0-5.0); NEUTROPHILS # 4.3 10^3/uL (1.8-7.7); NEUTROPHILS % 61.5 % (36.0-66.0); PLATELET COUNT, AUTOMATED 200 10^3/uL (150-450); RED BLOOD COUNT 4.38 10^6/uL (4.30-6.10); WHITE BLOOD COUNT 7.1 10^3/uL (4.0-10.0)
[2018-03-24 13:20] LABS: ALBUMIN 4.1 GM/DL (3.2-5.2); ALT/SGPT 47 U/L (12-78); BILIRUBIN,TOTAL 0.5 MG/DL (0.2-1.0); BLOOD UREA NITROGEN 21 MG/DL (7-18); C REACTIVE PROTEIN QUANTITATIV 0.66 MG/DL (0.00-0.30); CALCIUM LEVEL 9.4 MG/DL (8.8-10.2); CARBON DIOXIDE LEVEL 30 MEQ/L (21-32); CHLORIDE LEVEL 105 MEQ/L (98-107); CREATININE FOR GFR 0.86 MG/DL (0.70-1.30); GLOMERULAR FILTRATION RATE > 60.0 (>49); GLUCOSE, FASTING 107 MG/DL (70-100); POTASSIUM SERUM 4.5 MEQ/L (3.5-5.1); SODIUM LEVEL 139 MEQ/L (136-145); TOTAL PROTEIN 6.5 GM/DL (6.4-8.2)
[2018-03-24 13:51] LABS: ERYTHROCYTE SEDIMENTATION RATE 5 mm/hr (0-20)
[2018-03-24 14:37] LABS: HEMOGLOBIN A1c 6.8 %
== END ==
LOC: M SFHCADAM 09:44
PROVIDERS: ATTEND Family Medicine
DX: M06.09 Rheumatoid arthritis without rheumatoid factor, multiple sites (principal); E11.9 Type 2 diabetes mellitus without complications

== ENCOUNTER 2018-04-13 07:58 | Outpatient (CLI) | payer BC ==
[~2018-04-13] VITALS: Ht 165.1 cm; Wt 97.3 kg
[2018-04-13 08:10] VITALS: BP 143/69
[2018-04-13] MEDS ORDERED: ABATACEPT 750 MG OVER 30 MINUTES IV ONE ×2 (08:15)
[2018-04-13] MEDS ORDERED: FILTER 1.2 MICRON (ADULT TPN/MANNITOL/REMICADE) XX ONE (08:15)
== END 2018-04-13 09:45 | disposition home or self-care (01) ==
LOC: M INFU 07:58
PROVIDERS: ATTEND Internal Medicine Rheumatology
DX: M06.09 Rheumatoid arthritis without rheumatoid factor, multiple sites (principal); M17.0 Bilateral primary osteoarthritis of knee
CPT/HCPCS: 96365; J0129

== ENCOUNTER → 2018-06-29 | Outpatient (REF) | payer MEDICARE ==
[~2018-06-29] MED LIST changes: -/CELE20CA; -/ESOM40CA; +CELE1CAP4; +NEXI1CAP3
[2018-06-29 10:22] LABS: BASO # 0.1 10^3/uL (0.0-0.2); BASO % 0.8 % (0.0-1.0); EOS # 0.2 10^3/uL (0.0-0.50); EOS % 2.7 % (0.0-3.0); HEMATOCRIT 42.4 % (42.0-52.0); HEMOGLOBIN 14.4 g/dl (13.5-17.5); LYMPH # 1.2 10^3/uL (1.5-4.5); LYMPH % 20.7 % (24.0-44.0); MEAN CORPUSCULAR HEMOGLOBIN 32.1 pg (27.0-33.0); MEAN CORPUSCULAR VOLUME 94.6 fl (80.0-96.0); MONO # 0.6 10^3/uL (0.0-0.8); MONO % 10.8 % (0.0-5.0); NEUTROPHILS # 3.8 10^3/uL (1.8-7.7); NEUTROPHILS % 64.5 % (36.0-66.0); PLATELET COUNT, AUTOMATED 198 10^3/uL (150-450); RED BLOOD COUNT 4.48 10^6/uL (4.30-6.10); WHITE BLOOD COUNT 5.9 10^3/uL (4.0-10.0)
[2018-06-29 10:53] LABS: ALT/SGPT 41 U/L (12-78); BILIRUBIN,TOTAL 0.4 MG/DL (0.2-1.0); BLOOD UREA NITROGEN 18 MG/DL (7-18); C REACTIVE PROTEIN QUANTITATIV < 0.30 MG/DL (0.00-0.30); CARBON DIOXIDE LEVEL 33 MEQ/L (21-32); CHLORIDE LEVEL 105 MEQ/L (98-107); CREATININE FOR GFR 0.84 MG/DL (0.70-1.30); GLOMERULAR FILTRATION RATE > 60.0 (>49); GLUCOSE, FASTING 109 MG/DL (70-100); POTASSIUM SERUM 4.5 MEQ/L (3.5-5.1); SODIUM LEVEL 140 MEQ/L (136-145); TOTAL PROTEIN 6.5 GM/DL (6.4-8.2); URIC ACID 6.1 MG/DL (3.5-7.2)
[2018-06-29 14:28] LABS: ERYTHROCYTE SEDIMENTATION RATE 3 mm/hr (0-20)
== END ==
LOC: M SFHCPLAZ 07:45
PROVIDERS: ATTEND Internal Medicine Rheumatology
DX: M06.09 Rheumatoid arthritis without rheumatoid factor, multiple sites (principal); M11.89 Other specified crystal arthropathies, multiple sites
CPT/HCPCS: 36415; 80053; 84550; 85025; 85652; 86140; G0463

== ENCOUNTER → 2018-07-12 | Outpatient (REF) | payer MEDICARE ==
[2018-07-12 20:05] LABS: HEMOGLOBIN A1c 6.5 %
== END ==
LOC: M SFHCADAM 14:58
PROVIDERS: ATTEND Family Medicine
DX: E11.69 Type 2 diabetes mellitus with other specified complication (principal)
CPT/HCPCS: 83036; G0463

== ENCOUNTER → 2018-07-21 | Outpatient (CLI) | payer BC, MEDICARE ==
--- NOTE | 2018-07-21 13:00 | REP ---
The bilateral lower extremity artery Doppler assessment: Right lower extremity: Brachial artery peak systole: 150 mmHg Dorsalis penis peak systole: 155 mmHg ELECTRICIAN SUBSTATION peak systole: 150 mmHg VICTORIANO: 1.0 Peak Systolic Phasicity Velocity MACHINE DESIGN ENGINEER 96.9 triphasic Profunda 76.4 triphasic SFA prox 111.6 triphasic SFA mid 105.8 triphasic SFA dist 97.5 triphasic Pop 70.6 triphasic SASHA prox 39.4 triphasic Tib/P tr 72.3 triphasic ELECTRICIAN SUBSTATION pr 55.8 triphasic ELECTRICIAN SUBSTATION dst 33.4 triphasic SASHA dst 41.7 triphasic Left lower extremity: Brachial artery peak systole: 150 mmHg. Dorsalis pedis peak systole: 120 mmHg. ELECTRICIAN SUBSTATION peak systole: 170 mmHg. VICTORIANO: 1.1 Peak Systolic Phasicity Velocity MACHINE DESIGN ENGINEER 119th triphasic Profunda 70.0 triphasic SFA prox 113.8 triphasic SFA mid 103.4 triphasic SFA dist 63.6 triphasic Pop 69.4 triphasic SASHA prox 55.9 triphasic Tib/P tr 62.9 triphasic ELECTRICIAN SUBSTATION pr 85.6 triphasic ELECTRICIAN SUBSTATION dst 29.9 triphasic SASHA dst 27.7 triphasic Impression: There is mild atheromatous plaque throughout bilaterally. Question of a left MACHINE DESIGN ENGINEER mild stenosis. Electronically Signed by Hoang Valenzuela MD 07/21/2018 12:51 P
== END ==
LOC: M RAD 09:54
PROVIDERS: ATTEND Surgery Vascular Surgery
DX: Z86.79 Personal history of other diseases of the circulatory system (principal)

== ENCOUNTER 2018-08-17 13:33 | Emergency (ER) | payer MEDICARE ==
[~2018-08-17] VITALS: Ht 172.7 cm; Wt 84.1 kg
[2018-08-17] MEDS ORDERED: METF10004 (13:43)
[2018-08-17] MEDS ORDERED: MORPHINE 4 MG/ML 1ML VIAL/SYRINGE (J2270) IV ONE ×2 (15:30→18:30)
[2018-08-17] MEDS ORDERED: NS 1,000 ML IV ONE (15:30)
[2018-08-17] MEDS ORDERED: ONDANSETRON 4MG/2ML VIAL (J2405) IV ONE (15:30)
[2018-08-17 16:20] LABS: BASO # 0.1 10^3/uL (0.0-0.2); BASO % 0.6 % (0.0-1.0); EOS # 0.2 10^3/uL (0.0-0.50); EOS % 2.7 % (0.0-3.0); HEMATOCRIT 38.1 % (42.0-52.0); HEMOGLOBIN 13.1 g/dl (13.5-17.5); LYMPH # 1.2 10^3/uL (1.5-4.5); LYMPH % 13.1 % (24.0-44.0); MEAN CORPUSCULAR HEMOGLOBIN 32.7 pg (27.0-33.0); MEAN CORPUSCULAR HGB CONC 34.4 g/dl (32.0-36.5); MONO # 0.8 10^3/uL (0.0-0.8); MONO % 8.9 % (0.0-5.0); NEUTROPHILS # 6.5 10^3/uL (1.8-7.7); PLATELET COUNT, AUTOMATED 165 10^3/uL (150-450); RED BLOOD COUNT 4.01 10^6/uL (4.30-6.10); WHITE BLOOD COUNT 8.8 10^3/uL (4.0-10.0)
[2018-08-17 16:30] LABS: INR 2.85; PROTHROMBIN TIME 30.5 SECONDS (12.1-14.4)
[2018-08-17 16:31] LABS: PARTIAL THROMBOPLASTIN TIME 59.2 SECONDS (25.4-37.6)
[2018-08-17 16:48] LABS: ALBUMIN 3.8 GM/DL (3.2-5.2); ALT/SGPT 36 U/L (12-78); BILIRUBIN,DIRECT 0.2 MG/DL (0.0-0.2); BILIRUBIN,TOTAL 0.5 MG/DL (0.2-1.0); BLOOD UREA NITROGEN 13 MG/DL (7-18); CALCIUM LEVEL 8.9 MG/DL (8.8-10.2); CARBON DIOXIDE LEVEL 28 MEQ/L (21-32); CHLORIDE LEVEL 103 MEQ/L (98-107); CREATININE FOR GFR 0.86 MG/DL (0.70-1.30); GLOMERULAR FILTRATION RATE > 60.0 (>49); GLUCOSE, FASTING 113 MG/DL (70-100); LIPASE 103 U/L (73-393); POTASSIUM SERUM 4.2 MEQ/L (3.5-5.1); SODIUM LEVEL 137 MEQ/L (136-145); TOTAL PROTEIN 6.4 GM/DL (6.4-8.2)
[2018-08-17] MEDS ORDERED: ISOVUE-370 76% 100ML VIAL (Q9967) As Ordered ONE (17:18)
--- NOTE | 2018-08-17 18:32 | REPVR ---
EXAM: CT Abdomen and Pelvis With Contrast EXAM DATE/TIME: 08/17/2018 5:32 PM CLINICAL HISTORY: 68 years old, male; Abdominal pain; Generalized; Additional info: Llq pain/constipation TECHNIQUE: Imaging protocol: Axial computed tomography images of the abdomen and pelvis with intravenous contrast. Coronal and sagittal reformatted images were created and reviewed. Radiation optimization: All CT scans at this facility use at least one of these dose optimization techniques: automated exposure control; mA and/or kV adjustment per patient size (includes targeted exams where dose is matched to clinical indication); or iterative reconstruction. Contrast material: ISOVUE 370; Contrast volume: 100 ml; Contrast route: IV; COMPARISON: CT ABD PELVIS WITH CONTRAST 08/18/2015 6:05 PM FINDINGS: Lungs: Calcified granuloma right lung base stable in appearance. Pleural-based noncalcified nodule left lower lobe stable in appearance. Pleural space: Bibasilar pleural thickening with a small focus of pleural calcification on the right stable in appearance. ABDOMEN: Liver: There is a diffuse decrease in hepatic parenchymal density, consistent with fatty infiltration. Gallbladder and bile ducts: Normal. No calcified stones. No ductal dilation. Pancreas: Normal. No ductal dilation. Spleen: Normal. No splenomegaly. Adrenals: Normal. No mass. Kidneys and ureters: Small right renal cyst measures 9 mm. It is otherwise unremarkable. Stomach and bowel: There is a segment of acute inflammation in the mid sigmoid colon with extensive pericolonic inflammation without evidence of a drainable abscess or free air, consistent with acute diverticulitis. Normal anastomosis in the distal colon. Duodenal diverticulum. Appendix: No evidence of appendicitis. PELVIS: Bladder: Unremarkable as visualized. Reproductive: The prostate gland demonstrates mild hyperplasia. ABDOMEN and PELVIS: Intraperitoneal space: Normal. No free air. No significant fluid collection. Bones/joints: The spine demonstrates mild degenerative changes. Moderate central spinal stenosis L4-5 secondary to a disc osteophyte complex. Soft tissues: Unremarkable. Vasculature: The aorta demonstrates mild atherosclerotic calcification. Ectatic. No aneurysm. Lymph nodes: Normal. No enlarged lymph nodes. IMPRESSION: 1. There is a diffuse decrease in hepatic parenchymal density, consistent with fatty infiltration. 2. There is a segment of acute inflammation in the mid sigmoid colon with extensive pericolonic inflammation without evidence of a drainable abscess or free air, consistent with acute diverticulitis. 3. Mild prostatic hyperplasia. COMMENT: Consistent with the [employer] [place] [employer]'s Incidental Findings Committee Report (J Am Carlton Radiol 2010): Unless the patient's specific circumstances suggest otherwise, any liver lesion 0.5 cm or less, any cystic kidney lesion less than 1.0 cm, and/or any adrenal lesion 1.0 cm or less not otherwise characterized in this report as possessing suspicious or indeterminate imaging features is/are highly likely to be benign and do not require follow-up imaging or biopsy. Electronically signed by: Mirza England On 08/17/2018 18:31:43 PM
[2018-08-17] MEDS ORDERED: FLAG500T PO (19:09)
[2018-08-17] MEDS ORDERED: CIPR-249 PO (19:09)
[2018-08-17] MEDS ORDERED: TRAM50TA2 PO (19:09)
[2018-08-17] MEDS ORDERED: CIPROFLOXACIN 500 MG TAB PO ONE (19:15)
[2018-08-17] MEDS ORDERED: metroNIDAZOLE (FLAGYL) 500 MG TAB PO ONE (19:15)
[2018-08-17 19:30] VITALS: BP 149/69
== END 2018-08-17 19:31 | disposition home or self-care (01) ==
LOC: M ED 13:33
DX: K57.32 Diverticulitis of large intestine without perforation or abscess without bleeding (principal); E11.9 Type 2 diabetes mellitus without complications; I10 Essential (primary) hypertension; K21.9 Gastro-esophageal reflux disease without esophagitis; J45.909 Unspecified asthma, uncomplicated; R91.1 Solitary pulmonary nodule; G40.409 Other generalized epilepsy and epileptic syndromes, not intractable, without status epilepticus; D72.819 Decreased white blood cell count, unspecified; Z79.899 Other long term (current) drug therapy; Z79.01 Long term (current) use of anticoagulants; Z79.84 Long term (current) use of oral hypoglycemic drugs
CPT/HCPCS: 74177; 80048; 80076; 81001; 83605; 83690; 85025; 85610; 85730; 96374; 96375; 96376; 99284; J2270; J2405; Q9967

== ENCOUNTER → 2018-10-11 | Outpatient (REF) | payer MEDICARE ==
[~2018-10-11] MED LIST changes: +CIPR-249 PO; +FLAG500T PO; +METF10004; +TRAM50TA2 PO
[2018-10-11 13:22] LABS: BASO % 0.7 % (0.0-1.0); EOS # 0.2 10^3/uL (0.0-0.50); EOS % 2.6 % (0.0-3.0); HEMATOCRIT 40.3 % (42.0-52.0); HEMOGLOBIN 13.7 g/dl (13.5-17.5); LYMPH # 1.4 10^3/uL (1.5-4.5); LYMPH % 23.8 % (24.0-44.0); MEAN CORPUSCULAR HEMOGLOBIN 31.9 pg (27.0-33.0); MEAN CORPUSCULAR VOLUME 93.9 fl (80.0-96.0); MONO # 0.8 10^3/uL (0.0-0.8); MONO % 13.6 % (0.0-5.0); NEUTROPHILS # 3.5 10^3/uL (1.8-7.7); NEUTROPHILS % 59.1 % (36.0-66.0); PLATELET COUNT, AUTOMATED 194 10^3/uL (150-450); RED BLOOD COUNT 4.29 10^6/uL (4.30-6.10); WHITE BLOOD COUNT 5.8 10^3/uL (4.0-10.0)
[2018-10-11 13:55] LABS: ALBUMIN 3.9 GM/DL (3.2-5.2); ALT/SGPT 40 U/L (12-78); BILIRUBIN,TOTAL 0.5 MG/DL (0.2-1.0); BLOOD UREA NITROGEN 23 MG/DL (7-18); C REACTIVE PROTEIN QUANTITATIV < 0.30 MG/DL (0.00-0.30); CALCIUM LEVEL 9.3 MG/DL (8.8-10.2); CARBON DIOXIDE LEVEL 29 MEQ/L (21-32); CHLORIDE LEVEL 104 MEQ/L (98-107); CREATININE FOR GFR 0.86 MG/DL (0.70-1.30); GLOMERULAR FILTRATION RATE > 60.0 (>49); GLUCOSE, FASTING 100 MG/DL (70-100); POTASSIUM SERUM 4.8 MEQ/L (3.5-5.1); SODIUM LEVEL 137 MEQ/L (136-145); TOTAL PROTEIN 6.7 GM/DL (6.4-8.2)
[2018-10-11 15:33] LABS: ERYTHROCYTE SEDIMENTATION RATE 5 mm/hr (0-20)
== END ==
LOC: M SFHCRHEU 12:35
PROVIDERS: ATTEND Internal Medicine Rheumatology
DX: M06.09 Rheumatoid arthritis without rheumatoid factor, multiple sites (principal)
CPT/HCPCS: 80053; 85025; 85652; 86140; G0463

== ENCOUNTER → 2018-10-22 | Outpatient (REF) | payer MEDICARE ==
[2018-10-22 11:36] LABS: BASO # 0.1 10^3/uL (0.0-0.2); BASO % 0.9 % (0.0-1.0); EOS # 0.3 10^3/uL (0.0-0.50); EOS % 3.7 % (0.0-3.0); HEMATOCRIT 42.3 % (42.0-52.0); HEMOGLOBIN 14.4 g/dl (13.5-17.5); LYMPH # 1.4 10^3/uL (1.5-4.5); LYMPH % 18.1 % (24.0-44.0); MEAN CORPUSCULAR HEMOGLOBIN 31.9 pg (27.0-33.0); MEAN CORPUSCULAR VOLUME 93.6 fl (80.0-96.0); MONO # 0.7 10^3/uL (0.0-0.8); MONO % 9.4 % (0.0-5.0); NEUTROPHILS # 5.4 10^3/uL (1.8-7.7); NEUTROPHILS % 67.5 % (36.0-66.0); PLATELET COUNT, AUTOMATED 197 10^3/uL (150-450); RED BLOOD COUNT 4.52 10^6/uL (4.30-6.10); WHITE BLOOD COUNT 7.9 10^3/uL (4.0-10.0)
[2018-10-22 12:00] LABS: ALT/SGPT 37 U/L (12-78); BILIRUBIN,TOTAL 0.5 MG/DL (0.2-1.0); BLOOD UREA NITROGEN 20 MG/DL (7-18); C REACTIVE PROTEIN QUANTITATIV < 0.30 MG/DL (0.00-0.30); CALCIUM LEVEL 9.4 MG/DL (8.8-10.2); CARBON DIOXIDE LEVEL 32 MEQ/L (21-32); CHLORIDE LEVEL 104 MEQ/L (98-107); CREATININE FOR GFR 0.92 MG/DL (0.70-1.30); GLOMERULAR FILTRATION RATE > 60.0 (>49); GLUCOSE, FASTING 137 MG/DL (70-100); SODIUM LEVEL 141 MEQ/L (136-145); TOTAL PROTEIN 6.9 GM/DL (6.4-8.2)
[2018-10-22 12:03] LABS: ERYTHROCYTE SEDIMENTATION RATE 2 mm/hr (0-20)
[2018-10-22 12:09] LABS: HEMOGLOBIN A1c 6.5 %
== END ==
LOC: M SFHCADAM 09:44
PROVIDERS: ATTEND Family Medicine
DX: M06.09 Rheumatoid arthritis without rheumatoid factor, multiple sites (principal); E11.9 Type 2 diabetes mellitus without complications

== ENCOUNTER → 2018-11-29 | Outpatient (CLI) | payer MEDICARE ==
--- NOTE | 2018-11-29 18:42 | REP ---
LUMBOSACRAL SPINE: Five views of the lumbosacral spine are performed. There is no compression fracture or malalignment. There is no spondylolysis or spondylolisthesis. There is mild diffuse spurring with a more moderate degree of spurring or L4 and L5. There is moderate disc space narrowing with subchondral sclerosis and vacuum at L4-5 with mild narrowing at L5-S1. There is diffuse sclerosis and spurring at the posterior facet joints, most significantly at L4-5. There is partial sacralization of L5 on the left. Posterior elements are intact. IMPRESSION: Degenerative changes as above. Electronically Signed by Hoang Gonsalves MD 11/30/2018 10:04 A
--- NOTE | 2018-11-29 18:46 | REP ---
LEFT HIP, TWO VIEWS: Two views of the left hip are performed. There is no fracture or dislocation. There is mild joint space narrowing and subchondral sclerosis compatible with mild degenerative changes. Small metallic coils overlie the pelvis. Benign well defined subchondral cyst with a sclerotic margin is seen in the inferior femoral head. IMPRESSION: Mild degenerative changes. Electronically Signed by Hoang Gonsalves MD 11/30/2018 10:05 A
== END ==
LOC: M ADAMS 15:46
PROVIDERS: ATTEND Physician Assistant Medical
DX: M16.11 Unilateral primary osteoarthritis, right hip (principal); M25.552 Pain in left hip; M54.5 Low back pain
CPT/HCPCS: 72110; 73502; G0402; G0463

== ENCOUNTER → 2019-03-18 | Outpatient (REF) | payer MEDICARE ==
[2019-03-18 14:06] LABS: ALT/SGPT 31 U/L (12-78); BILIRUBIN,TOTAL 0.6 MG/DL (0.2-1.0); BLOOD UREA NITROGEN 18 MG/DL (7-18); CALCIUM LEVEL 9.3 MG/DL (8.8-10.2); CARBON DIOXIDE LEVEL 30 MEQ/L (21-32); CHLORIDE LEVEL 104 MEQ/L (98-107); CHOLESTEROL LEVEL 175 MG/DL (<200); CHOLESTEROL RISK RATIO 4.729 (<5); CREATININE FOR GFR 0.98 MG/DL (0.70-1.30); GLOMERULAR FILTRATION RATE > 60.0 (>49); GLUCOSE, FASTING 118 MG/DL (70-100); HDL CHOLESTEROL 37 MG/DL (>40); LDL CHOLESTEROL 102 MG/DL (<100); NON-HDL-C 138 MG/DL; POTASSIUM SERUM 5.2 MEQ/L (3.5-5.1); SODIUM LEVEL 137 MEQ/L (136-145); TOTAL PROTEIN 6.8 GM/DL (6.4-8.2); TRIGLYCERIDES LEVEL 181 MG/DL (<150)
[2019-03-18 14:11] LABS: BASO % 0.6 % (0.0-1.0); EOS # 0.1 10^3/uL (0.0-0.5); HEMATOCRIT 45.4 % (42.0-52.0); HEMOGLOBIN 14.7 g/dl (13.5-17.5); LYMPH # 1.6 10^3/uL (1.5-5.0); LYMPH % 24.6 % (24.0-44.0); MEAN CORPUSCULAR HEMOGLOBIN 30.8 pg (27.0-33.0); MEAN CORPUSCULAR HGB CONC 32.4 g/dl (32.0-36.5); MEAN CORPUSCULAR VOLUME 95.2 fl (80.0-96.0); MONO # 0.7 10^3/uL (0.0-0.8); MONO % 11.4 % (0.0-5.0); NEUTROPHILS # 3.9 10^3/uL (1.5-8.5); NEUTROPHILS % 61.1 % (36.0-66.0); PLATELET COUNT, AUTOMATED 183 10^3/uL (150-450); RED BLOOD COUNT 4.77 10^6/uL (4.30-6.10); WHITE BLOOD COUNT 6.4 10^3/uL (4.0-10.0)
[2019-03-18 14:33] LABS: MALB URINE SIEMENS 15.4 MG/L; MAU/CREAT RATIO 11.4 MCG/MG (0.0-30.0)
[2019-03-18 14:34] LABS: HEMOGLOBIN A1c 6.1 %
== END ==
LOC: M SFHCADAM 07:48
PROVIDERS: ATTEND Family Medicine
DX: E11.9 Type 2 diabetes mellitus without complications (principal); I10 Essential (primary) hypertension; E78.2 Mixed hyperlipidemia

== ENCOUNTER → 2019-05-02 | Outpatient (REF) | payer MEDICARE ==
[2019-05-02 14:14] LABS: APPEARANCE, URINE CLEAR (CLEAR); BACTERIA, URINE AUTO NEGATIVE (NEGATIVE); BILIRUBIN, URINE AUTO NEGATIVE (NEGATIVE); BLOOD, URINE BLOOD NEGATIVE (NEGATIVE); CALCIUM OXALATE CRYSTALS SMALL; COLOR, URINE YELLOW (YELLOW); GLUCOSE, URINE (UA) AUTO NEGATIVE (NEGATIVE); KETONE, URINE AUTO NEGATIVE (NEGATIVE); LEUKOCYTE ESTERASE, URINE AUTO NEGATIVE (NEGATIVE); MUCUS, URINE SMALL (NEGATIVE); NITRITE, URINE AUTO NEGATIVE (NEGATIVE); PROTEIN, URINE AUTO NEGATIVE (NEGATIVE); RBC, URINE AUTO 2 /HPF (0-3); SPECIFIC GRAVITY URINE AUTO 1.019 (1.002-1.035); SQUAMOUS EPITHELIAL CELL UR AU 0 /HPF (0-6); UROBILINOGEN, URINE AUTO 0.2 mg/dL (0.0-2.0); WBC, URINE AUTO 0 /HPF (0-3)
== END ==
LOC: M SMT 13:14
PROVIDERS: ATTEND Nurse Practitioner Women's Health
DX: Z85.51 Personal history of malignant neoplasm of bladder (principal); R35.1 Nocturia

== ENCOUNTER → 2019-05-12 | Outpatient (CLI) | payer MEDICARE ==
--- NOTE | 2019-05-12 16:22 | REP ---
SCROTAL ULTRASOUND: Real-time sonographic evaluation of the scrotum and contents performed. Testicles are normal in size and echotexture, right testicle measuring 2.9 x 2.6 x 2.8 cm and left testicle 3.5 x 2.1 x 2.6 cm. There is no testicular mass or torsion, blood flow is seen in each testicle with duplex Doppler evaluation. Tiny cystic changes are seen in the body and tail of the right epididymis. Scrotolith is noted on the right which is mobile, measuring 7 mm in diameter. There are bilateral hydroceles containing debris, moderate in size on the right and small in size on the left. IMPRESSION: No testicular mass or torsion. Moderate right hydrocele and small left hydrocele. Electronically Signed by Hoang Gonsalves MD 05/13/2019 05:00 P
== END ==
LOC: M RAD 12:54
PROVIDERS: ATTEND Nurse Practitioner Women's Health
DX: N43.2 Other hydrocele (principal)

== ENCOUNTER → 2019-06-10 | Outpatient (REF) | payer MEDICARE ==
[2019-06-10 16:50] LABS: HEMOGLOBIN A1c 6.7 %
== END ==
LOC: M SFHCADAM 13:01
PROVIDERS: ATTEND Family Medicine
DX: E11.9 Type 2 diabetes mellitus without complications (principal)

== ENCOUNTER → 2019-07-04 | Outpatient (REF) | payer MEDICARE ==
[2019-07-04 15:19] LABS: APPEARANCE, URINE CLEAR (CLEAR); BACTERIA, URINE AUTO NEGATIVE (NEGATIVE); BILIRUBIN, URINE AUTO NEGATIVE (NEGATIVE); BLOOD, URINE BLOOD NEGATIVE (NEGATIVE); COLOR, URINE YELLOW (YELLOW); GLUCOSE, URINE (UA) AUTO NEGATIVE (NEGATIVE); KETONE, URINE AUTO NEGATIVE (NEGATIVE); LEUKOCYTE ESTERASE, URINE AUTO NEGATIVE (NEGATIVE); MUCUS, URINE SMALL (NEGATIVE); NITRITE, URINE AUTO NEGATIVE (NEGATIVE); PROTEIN, URINE AUTO NEGATIVE (NEGATIVE); RBC, URINE AUTO 0 /HPF (0-3); SPECIFIC GRAVITY URINE AUTO 1.019 (1.002-1.035); SQUAMOUS EPITHELIAL CELL UR AU 0 /HPF (0-6); UROBILINOGEN, URINE AUTO 0.2 mg/dL (0.0-2.0); WBC, URINE AUTO 0 /HPF (0-3)
== END ==
LOC: M SFHCADAM 13:38
PROVIDERS: ATTEND Nurse Practitioner Women's Health
DX: Z12.5 Encounter for screening for malignant neoplasm of prostate (principal); Z85.51 Personal history of malignant neoplasm of bladder; R35.1 Nocturia
CPT/HCPCS: 81001; 87086; G0103

== ENCOUNTER → 2019-07-20 | Outpatient (CLI) | payer MEDICARE ==
--- NOTE | 2019-07-20 11:50 | REP ---
LEFT KNEE, SIX VIEWS: Six views left knee performed. No acute fracture or dislocation is seen. There is mild medial joint space narrowing with tiny spur of the medial tibial plateau and chondrocalcinosis noted in the medial joint space and to a lesser extent in the lateral joint space. There is mild superior patellar spurring. There appears to be mild lateral patellofemoral compartment narrowing. There is a small suprapatellar effusion. IMPRESSION: No acute fracture. Arthritic changes as above with suprapatellar effusion. Electronically Signed by Hoang Gonsalves MD 07/20/2019 12:51 P
== END ==
LOC: M ADAMS 10:01
PROVIDERS: ATTEND Family Medicine
DX: M17.12 Unilateral primary osteoarthritis, left knee (principal); M25.762 Osteophyte, left knee; M25.462 Effusion, left knee; M25.562 Pain in left knee

== ENCOUNTER → 2019-07-27 | Outpatient (REF) | payer MEDICARE ==
[~2019-07-27] MED LIST changes: +NORC1TAB7 PO
[2019-07-28 11:09] LABS: CRYSTALS, BODY FLUID CA PYROPHOSPHATE (NONE SEEN); SOURCE, BODY FLUID CRYSTALS LFT KNEE
[2019-07-28 11:11] LABS: MUCIN CLOT TEST 4+ (4+)
[2019-07-28 11:14] LABS: SOURCE, BODY FLUID LFT KNEE; SYNOVIAL FLUID COLOR AMBER (YELLOW)
[2019-07-28 11:15] LABS: BODY FLUID RHEUMATOID SCREEN NEGATIVE (NEGATIVE)
[2019-07-28 12:35] LABS: SOURCE, BODY FLUID GLUCOSE LFT KNEE
== END ==
LOC: M LAB REF 10:30
PROVIDERS: ATTEND Physician Assistant
DX: M25.062 Hemarthrosis, left knee (principal)

== ENCOUNTER → 2019-07-28 | Outpatient (REF) | payer MEDICARE ==
[2019-07-28 13:09] LABS: BASO % 0.1 % (0.0-1.0); EOS % 0.1 % (0.0-3.0); HEMATOCRIT 42.4 % (42.0-52.0); HEMOGLOBIN 14.2 g/dl (13.5-17.5); LYMPH # 0.9 10^3/uL (1.5-5.0); LYMPH % 5.9 % (24.0-44.0); MEAN CORPUSCULAR HGB CONC 33.5 g/dl (32.0-36.5); MEAN CORPUSCULAR VOLUME 92.6 fl (80.0-96.0); MONO # 0.7 10^3/uL (0.0-0.8); MONO % 4.9 % (0.0-5.0); NEUTROPHILS # 12.9 10^3/uL (1.5-8.5); NEUTROPHILS % 88.5 % (36.0-66.0); PLATELET COUNT, AUTOMATED 223 10^3/uL (150-450); RED BLOOD COUNT 4.58 10^6/uL (4.30-6.10); WHITE BLOOD COUNT 14.6 10^3/uL (4.0-10.0)
[2019-07-28 13:16] LABS: C REACTIVE PROTEIN QUANTITATIV < 0.30 MG/DL (0.00-0.30); RHEUMATOID FACTOR QUANT < 10.0 IU/ML (<15.0); URIC ACID 5.7 MG/DL (3.5-7.2)
[2019-07-30 00:07] LABS: ANTINUCLEAR ANTIBODIES DIRECT Negative (Negative); Lyme Disease IgG/IgM Antibodie <0.91 ISR (0.00-0.90); Lyme Disease IgM Ab Quantitati <0.80 index (0.00-0.79)
== END ==
LOC: M LABDRWAD 12:27
PROVIDERS: ATTEND Physician Assistant
DX: M25.562 Pain in left knee (principal)

== ENCOUNTER → 2019-08-03 | Outpatient (CLI) | payer MEDICARE ==
--- NOTE | 2019-08-03 12:03 | REP ---
BILATERAL LOWER EXTREMITY DUPLEX DOPPLER ARTERIAL ULTRASOUND: Real-time ultrasound evaluation and duplex Doppler interrogation of the bilateral lower extremity arterial systems is performed. VICTORIANO right is 1.2 and left 1.3. Mild to moderate scattered plaquing is seen bilaterally. Elevated peak systolic velocity in the proximal right anterior tibial artery suggests significant stenosis at that location. Otherwise no definite focal stenosis is seen bilaterally. Diffuse triphasic waveforms are present. There is a left popliteal cyst noted measuring 3.9 x 0.8 x 1.9 cm. Right Peak Left Peak Systolic Velocity Systolic velocity Common femoral artery 65.1 cm/s 101.7 cm/s Profunda 82.6 cm/s 63.7 cm/s SFA 113.8 cm/s 92.7 cm/s Popliteal 64.1 cm/s 70.0 cm/s Proximal SASHA 152.3 cm/s 73.4 cm/s Tibial peroneal trunk 70.6 cm/s 76.3 cm/s Proximal GAS ENGINEER 60.5 cm/s 75.6 cm/s Distal GAS ENGINEER 49.0 cm/s 68.7 cm/s Distal SASHA 43.1 cm/s 47.3 cm/s Electronically Signed by Hoang Gonsalves MD 08/03/2019 12:22 P
== END ==
LOC: M RAD 10:07
PROVIDERS: ATTEND Podiatrist Foot & Ankle Surgery
DX: I73.9 Peripheral vascular disease, unspecified (principal)

== ENCOUNTER 2019-08-08 21:40 | Emergency (ER) | payer MEDICARE ==
[~2019-08-08] VITALS: Ht 172.7 cm; Wt 87.3 kg
[~2019-08-08 21:40] MED LIST changes: -NORC1TAB7 PO
[2019-08-08] MEDS ORDERED: NORC1TAB7 PO ×2 (22:47→23:09)
[2019-08-08] MEDS ORDERED: NORCO, ANEXSIA 5/325MG TABLET (HYDROcodone/ACETAMINOPHEN) PO ONE (23:00)
[2019-08-08 23:44] VITALS: BP 160/80
--- NOTE | 2019-08-09 08:21 | REP ---
REASON: Pain after trauma. COMPARISON: 12/11/2017 There is minimal tricompartmental marginal osteophytosis status quo. Subtle calcifications are again seen in both medial and lateral compartments status quo. There is no acute fracture, dislocation or subluxation. IMPRESSION: Stable appearing chronic changes. Electronically Signed by Bob Kelley DO 08/09/2019 09:45 A
== END 2019-08-08 23:47 | disposition home or self-care (01) ==
LOC: M ED 21:40
DX: S89.92XA Unspecified injury of left lower leg, initial encounter (principal); W19.XXXA Unspecified fall, initial encounter; Y92.009 Unspecified place in unspecified non-institutional (private) residence as the place of occurrence of the external cause; M25.762 Osteophyte, left knee; E11.9 Type 2 diabetes mellitus without complications; I10 Essential (primary) hypertension; K21.9 Gastro-esophageal reflux disease without esophagitis; Z79.899 Other long term (current) drug therapy; Z79.891 Long term (current) use of opiate analgesic; Z79.84 Long term (current) use of oral hypoglycemic drugs; Z87.891 Personal history of nicotine dependence; Y99.8 Other external cause status

== ENCOUNTER → 2019-08-08 | Outpatient (REF) | payer MEDICARE | LOC: M SMT 12:53 | PROVIDERS: ATTEND Urology | DX: Z85.51 Personal history of malignant neoplasm of bladder (principal) ==

== ENCOUNTER → 2019-09-22 | Outpatient (REF) | payer MEDICARE ==
[~2019-09-22] MED LIST changes: +NORC1TAB7 PO
[2019-09-22 19:50] LABS: ALBUMIN 4.1 GM/DL (3.2-5.2); ALT/SGPT 38 U/L (12-78); BILIRUBIN,TOTAL 0.5 MG/DL (0.2-1.0); BLOOD UREA NITROGEN 16 MG/DL (7-18); CALCIUM LEVEL 9.7 MG/DL (8.8-10.2); CARBON DIOXIDE LEVEL 29 MEQ/L (21-32); CHLORIDE LEVEL 104 MEQ/L (98-107); CREATININE FOR GFR 0.98 MG/DL (0.70-1.30); GLOMERULAR FILTRATION RATE > 60.0 (>49); GLUCOSE, FASTING 134 MG/DL (70-100); POTASSIUM SERUM 4.8 MEQ/L (3.5-5.1); SODIUM LEVEL 140 MEQ/L (136-145); TOTAL PROTEIN 7.1 GM/DL (6.4-8.2)
== END ==
LOC: M SFHCADAM 13:52
PROVIDERS: ATTEND Family Medicine
DX: E11.9 Type 2 diabetes mellitus without complications (principal)

== ENCOUNTER → 2020-02-27 | Outpatient (REF) | payer MEDICARE ==
[2020-02-27 13:03] LABS: ALT/SGPT 36 U/L (12-78); BILIRUBIN,TOTAL 0.4 MG/DL (0.2-1.0); BLOOD UREA NITROGEN 16 MG/DL (7-18); CALCIUM LEVEL 9.5 MG/DL (8.8-10.2); CARBON DIOXIDE LEVEL 30 MEQ/L (21-32); CHLORIDE LEVEL 103 MEQ/L (98-107); CREATININE FOR GFR 0.82 MG/DL (0.70-1.30); GLOMERULAR FILTRATION RATE > 60.0 (>49); GLUCOSE, FASTING 141 MG/DL (70-100); HEMOGLOBIN A1c 6.5 %; POTASSIUM SERUM 4.9 MEQ/L (3.5-5.1); SODIUM LEVEL 136 MEQ/L (136-145); TOTAL PROTEIN 6.8 GM/DL (6.4-8.2)
== END ==
LOC: M SFHCADAM 09:31
PROVIDERS: ATTEND Family Medicine
DX: E11.69 Type 2 diabetes mellitus with other specified complication (principal)

== ENCOUNTER → 2020-03-29 | Outpatient (REF) | payer MEDICARE ==
[~2020-03-29] MED LIST changes: +GABA-282 PO; -GABA-843 PO; +LISI10TA22 PO; -LISI10TA4 PO
== END ==
LOC: M SFHCADAM 11:19
PROVIDERS: ATTEND Family Medicine
DX: R19.7 Diarrhea, unspecified (principal); Z11.52 Encounter for screening for COVID-19

== ENCOUNTER → 2020-04-05 | Outpatient (CLI) | payer MEDICARE ==
[~2020-04-05] MED LIST changes: +GASTROGRAFIN SOLUTION 30ML (Q9963) As Ordered ONE; +ISOVUE-370 76% 100ML VIAL As Ordered ONE; -LISI10TA22 PO; +LISI10TA4 PO
--- NOTE | 2020-04-06 04:02 | REP ---
INDICATION: UNSPECIFIED DIARRHEA, HX DIVERTICULITIS. COMPARISON: 08/17/2018 TECHNIQUE: Axial contrast-enhanced images from the lung bases to the pubic symphysis using oral and 100 cc Isovue 370 intravenous contrast material. Delayed images of the abdomen with coronal and sagittal reformations obtained. This CT examination was performed using the following dose reduction techniques: Automated exposure control, adjustment of mA and/or kv according to the patient's size, and the use of iterative reconstruction technique. FINDINGS: Liver demonstrates diffuse fatty infiltration without focal hepatic lesion. Spleen, pancreas, gallbladder, bilateral adrenal glands and kidneys are essentially normal/stable. Incidental benign right renal cysts measure 6 mm and 10 mm. The enteric system including stomach, small, and large bowel appears relatively normal. No evidence for obstruction or acute inflammatory process. Evidence for prior appendectomy and partial sigmoid resection noted. Few scattered colonic diverticula noted without acute diverticulitis. Pelvis demonstrates normal bladder and age-appropriate prostate/seminal vesicles. Evidence for prior inguinal repair. No ascites. No free air. No intraperitoneal or retroperitoneal adenopathy. Abdominal aorta and vasculature appear normal. Musculoskeletal structures are intact and without acute osseous abnormality. IMPRESSION: No acute abdominopelvic pathology appreciated. Hepatosteatosis. Few sigmoid diverticula without acute diverticulitis. Stable postsurgical changes including prior appendectomy, partial sigmoid resection, hernia repair. <Electronically signed by Zack Cantor > 04/06/20 [id number]
== END ==
LOC: M RAD 11:07
PROVIDERS: ATTEND Family Medicine
DX: R19.7 Diarrhea, unspecified (principal); Z87.19 Personal history of other diseases of the digestive system; K76.0 Fatty (change of) liver, not elsewhere classified; K57.30 Diverticulosis of large intestine without perforation or abscess without bleeding; Z90.49 Acquired absence of other specified parts of digestive tract
CPT/HCPCS: 74177; Q9963; Q9967

== ENCOUNTER → 2020-06-18 | Outpatient (REF) | payer MEDICARE ==
[~2020-06-18] MED LIST changes: -GASTROGRAFIN SOLUTION 30ML (Q9963) As Ordered ONE; -ISOVUE-370 76% 100ML VIAL As Ordered ONE; +LISI10TA22 PO; -LISI10TA4 PO
[2020-06-18 13:01] LABS: HEMOGLOBIN A1c 6.8 %
[2020-06-18 13:23] LABS: ALBUMIN 3.9 GM/DL (3.2-5.2); ALT/SGPT 37 U/L (12-78); BILIRUBIN,TOTAL 0.5 MG/DL (0.2-1.0); BLOOD UREA NITROGEN 18 MG/DL (7-18); CALCIUM LEVEL 9.6 MG/DL (8.8-10.2); CARBON DIOXIDE LEVEL 29 MEQ/L (21-32); CHLORIDE LEVEL 105 MEQ/L (98-107); CREATININE FOR GFR 0.76 MG/DL (0.70-1.30); GLOMERULAR FILTRATION RATE > 60.0 (>49); GLUCOSE, FASTING 137 MG/DL (70-100); POTASSIUM SERUM 4.6 MEQ/L (3.5-5.1); SODIUM LEVEL 139 MEQ/L (136-145); TOTAL PROTEIN 6.6 GM/DL (6.4-8.2)
== END ==
LOC: M SFHCADAM 10:34
PROVIDERS: ATTEND Family Medicine
DX: E11.9 Type 2 diabetes mellitus without complications (principal)

== ENCOUNTER → 2020-06-28 | Outpatient (REF) | payer MEDICARE | LOC: M LAB REF 15:21 | PROVIDERS: ATTEND Internal Medicine Gastroenterology | DX: R19.4 Change in bowel habit (principal) ==

== ENCOUNTER → 2020-09-10 | Outpatient (CLI) | payer MEDICARE ==
[~2020-09-10] MED LIST changes: +FLOM0.4C39 PO; +WARF-58 PO; +WARF4TAB51 PO
== END ==
LOC: M LABSMTC 09:09
PROVIDERS: ATTEND Anesthesiology
DX: Z01.818 Encounter for other preprocedural examination (principal); Z20.822 Contact with and (suspected) exposure to COVID-19

== ENCOUNTER 2020-09-14 06:32 | Day surgery (SDC) | payer MEDICARE ==
[~2020-09-14] VITALS: Ht 172.7 cm; Wt 138.3 kg
[~2020-09-14 06:32] MED LIST changes: +NS 1,000 ML IV ONE
[2020-09-14] MEDS ORDERED: propofoL 200 MG/20 ML VIAL As Ordered ONE (06:59)
[2020-09-14] MEDS ORDERED: LIDOCAINE 2% 100MG/5ML SDV (FOR ANES.) As Ordered ONE (06:59)
[2020-09-14] MEDS ORDERED: fentaNYL 100 MCG/2 ML INJECTION (J3010) As Ordered ONE (07:00)
--- NOTE | 2020-09-14 07:47 | ROOR ---
Patient Name: Yousif Lees Procedure Date: 09/14/2020 7:32 AM Date of : 1950 Age: 70 Room: [facility] Gender: Male Note Status: Finalized Procedure: Upper GI endoscopy Indications: Surveillance for malignancy due to personal history of Bonilla's esophagus Providers: Sylvester Ramachandran MD Referring MD: Lyssa Estes DO Requesting Provider: Medicines: Monitored Anesthesia Care Complications: No immediate complications. Procedure: Pre-Anesthesia Assessment: - The heart rate, respiratory rate, oxygen saturations, blood pressure, adequacy of pulmonary ventilation, and response to care were monitored throughout the procedure. The Endoscope was introduced through the mouth, and advanced to the second part of duodenum. The upper GI endoscopy was accomplished without difficulty. The patient tolerated the procedure well. Findings: The esophagus and gastroesophageal junction were examined with white light and narrow band imaging (NBI) from a forward view and retroflexed position. There were esophageal mucosal changes consistent with short-segment Bonilla's esophagus. These changes involved the mucosa at the upper extent of the gastric folds (41 cm from the incisors) extending to the Z-line (39 cm from the incisors). Diffuse salmon-colored mucosa was present from 39 to 41 cm. The maximum longitudinal extent of these esophageal mucosal changes was 2 cm in length. Mucosa was biopsied with a cold forceps for histology randomly. One specimen bottle was sent to pathology. The exam of the esophagus was otherwise normal. Small Hiatal Hernia. The entire examined stomach was normal. The examined duodenum was normal. Impression: - Esophageal mucosal changes consistent with short-segment (2 cm) Bonilla's esophagus. Biopsied. - Small Hiatal Hernia. - Normal stomach. - Normal examined duodenum. Recommendation: - Repeat upper endoscopy in 3 years for surveillance of Bonilla's esophagus. - Await pathology results. - Resume Coumadin (warfarin) at prior dose today. Procedure Code(s): --- Professional --- 64197, Esophagogastroduodenoscopy, flexible, transoral; with biopsy, single or multiple Diagnosis Code(s): --- Professional --- K22.70, Bonilla's esophagus without dysplasia CPT copyright 2019 [employer]. All rights reserved. The codes documented in this report are preliminary and upon proofer black and white review may be revised to meet current compliance requirements. Sylvester Ramachandran MD Sylvester Ramachandran MD 09/14/2020 7:46:40 AM Electronically signed by Sylvester Ramachandran MD Number of Addenda: 0 Note Initiated On: 09/14/2020 7:32 AM Estimated Blood Loss: Estimated blood loss: none.
[2020-09-14] MEDS ORDERED: AMPICILLIN SOD 2 GM in D5W MINI-BAG PLUS 100 ML IV ONE (08:05)
[2020-09-14] MEDS ORDERED: GENTAMICIN 80 MG in IV 1 EA IV ONE (08:05)
[2020-09-14 08:13] VITALS: BP 125/58
== END 2020-09-14 09:20 | disposition home or self-care (01) ==
LOC: M OPP 06:32
PROVIDERS: ATTEND Internal Medicine Gastroenterology
DX: K22.70 Barrett's esophagus without dysplasia (principal); K44.9 Diaphragmatic hernia without obstruction or gangrene; I10 Essential (primary) hypertension; E78.5 Hyperlipidemia, unspecified; E11.9 Type 2 diabetes mellitus without complications; M19.90 Unspecified osteoarthritis, unspecified site; G47.30 Sleep apnea, unspecified; Z87.891 Personal history of nicotine dependence; Z79.01 Long term (current) use of anticoagulants; Z79.84 Long term (current) use of oral hypoglycemic drugs; Z79.899 Other long term (current) drug therapy; K31.84 Gastroparesis; Z85.51 Personal history of malignant neoplasm of bladder; Z80.0 Family history of malignant neoplasm of digestive organs
CPT/HCPCS: 43239; 88305; J0290; J1580; J3010

== ENCOUNTER → 2020-09-17 | Outpatient (REF) | payer MEDICARE ==
[~2020-09-17] MED LIST changes: -NS 1,000 ML IV ONE
[2020-09-17 13:15] LABS: ALBUMIN 4.2 GM/DL (3.2-5.2); ALT/SGPT 42 U/L (12-78); BILIRUBIN,TOTAL 0.6 MG/DL (0.2-1.0); BLOOD UREA NITROGEN 21 MG/DL (7-18); CARBON DIOXIDE LEVEL 32 MEQ/L (21-32); CHLORIDE LEVEL 104 MEQ/L (98-107); CREATININE FOR GFR 0.83 MG/DL (0.70-1.30); GLOMERULAR FILTRATION RATE > 60.0 (>49); GLUCOSE, FASTING 131 MG/DL (70-100); HEMOGLOBIN A1c 6.3 %; POTASSIUM SERUM 4.5 MEQ/L (3.5-5.1); SODIUM LEVEL 140 MEQ/L (136-145); TOTAL PROTEIN 7.2 GM/DL (6.4-8.2)
== END ==
LOC: M SFHCADAM 08:47
PROVIDERS: ATTEND Family Medicine
DX: E11.9 Type 2 diabetes mellitus without complications (principal)

== ENCOUNTER → 2020-09-21 | Outpatient (REF) | payer MEDICARE ==
[2020-09-21 18:14] LABS: APPEARANCE, URINE CLEAR (CLEAR); BACTERIA, URINE AUTO NEGATIVE (NEGATIVE); BILIRUBIN, URINE AUTO NEGATIVE (NEGATIVE); BLOOD, URINE BLOOD NEGATIVE (NEGATIVE); COLOR, URINE YELLOW (YELLOW); GLUCOSE, URINE (UA) AUTO NEGATIVE (NEGATIVE); KETONE, URINE AUTO NEGATIVE (NEGATIVE); LEUKOCYTE ESTERASE, URINE AUTO NEGATIVE (NEGATIVE); NITRITE, URINE AUTO NEGATIVE (NEGATIVE); PROTEIN, URINE AUTO NEGATIVE (NEGATIVE); RBC, URINE AUTO 1 /HPF (0-3); SPECIFIC GRAVITY URINE AUTO 1.017 (1.002-1.035); SQUAMOUS EPITHELIAL CELL UR AU 0 /HPF (0-6); UROBILINOGEN, URINE AUTO 0.2 mg/dL (0.0-2.0); WBC, URINE AUTO 0 /HPF (0-3)
== END ==
LOC: M SMT 17:20
PROVIDERS: ATTEND Specialist
DX: C67.9 Malignant neoplasm of bladder, unspecified (principal)

== ENCOUNTER → 2020-11-13 | Outpatient (CLI) | payer MEDICARE | LOC: M PLAIMG 09:22 | PROVIDERS: ATTEND Orthopaedic Surgery | DX: M65.312 Trigger thumb, left thumb (principal); Z53.8 Procedure and treatment not carried out for other reasons ==

== ENCOUNTER → 2020-12-13 | Outpatient (REF) | payer MEDICARE ==
[2020-12-13 19:06] LABS: ALBUMIN 3.8 GM/DL (3.2-5.2); ALT/SGPT 36 U/L (12-78); BILIRUBIN,TOTAL 0.3 MG/DL (0.2-1.0); BLOOD UREA NITROGEN 19 MG/DL (7-18); CALCIUM LEVEL 9.4 MG/DL (8.8-10.2); CARBON DIOXIDE LEVEL 32 MEQ/L (21-32); CHLORIDE LEVEL 102 MEQ/L (98-107); CREATININE FOR GFR 0.88 MG/DL (0.70-1.30); GLOMERULAR FILTRATION RATE > 60.0 (>49); GLUCOSE, FASTING 126 MG/DL (70-100); POTASSIUM SERUM 4.3 MEQ/L (3.5-5.1); SODIUM LEVEL 138 MEQ/L (136-145); TOTAL PROTEIN 6.4 GM/DL (6.4-8.2)
== END ==
LOC: M SFHCADAM 14:11
PROVIDERS: ATTEND Family Medicine
DX: E11.69 Type 2 diabetes mellitus with other specified complication (principal)

== ENCOUNTER 2021-04-16 04:52 | Inpatient (IN) | payer MEDICARE ==
[~2021-04-16] VITALS: Ht 172.7 cm; Wt 83.5 kg
[2021-04-16 05:51] LABS: BASO % 0.4 % (0.0-1.0); EOS # 0.1 10^3/uL (0.0-0.5); EOS % 1.3 % (0.0-3.0); HEMATOCRIT 39.8 % (42.0-52.0); HEMOGLOBIN 13.4 g/dl (13.5-17.5); LYMPH % 9.3 % (24.0-44.0); MEAN CORPUSCULAR HEMOGLOBIN 31.2 pg (27.0-33.0); MEAN CORPUSCULAR HGB CONC 33.7 g/dl (32.0-36.5); MEAN CORPUSCULAR VOLUME 92.6 fl (80.0-96.0); MONO # 0.9 10^3/uL (0.0-0.8); MONO % 8.4 % (2.0-8.0); NEUTROPHILS # 8.8 10^3/uL (1.5-8.5); NEUTROPHILS % 79.2 % (36.0-66.0); PLATELET COUNT, AUTOMATED 219 10^3/uL (150-450); WHITE BLOOD COUNT 11.1 10^3/uL (4.0-10.0)
[2021-04-16 06:09] LABS: CK-MB VALUE MASS < 1.0 NG/ML (<3.6); CPK CREATINE PHOSPHOKINASE 39 U/L (39-308); MB/CK RELATIVE INDEX 2.56 (< OR =4)
[2021-04-16 06:10] LABS: ALBUMIN 3.1 GM/DL (3.2-5.2); ALT/SGPT 39 U/L (12-78); BILIRUBIN,DIRECT 0.2 MG/DL (0.0-0.2); BILIRUBIN,TOTAL 0.5 MG/DL (0.2-1.0); BLOOD UREA NITROGEN 20 MG/DL (7-18); CALCIUM LEVEL 9.1 MG/DL (8.8-10.2); CARBON DIOXIDE LEVEL 27 MEQ/L (21-32); CHLORIDE LEVEL 101 MEQ/L (98-107); CREATININE FOR GFR 0.83 MG/DL (0.70-1.30); GLOMERULAR FILTRATION RATE > 60.0 (>49); GLUCOSE, FASTING 138 MG/DL (70-100); LIPASE 74 U/L (73-393); SODIUM LEVEL 134 MEQ/L (136-145); TOTAL PROTEIN 6.6 GM/DL (6.4-8.2)
[2021-04-16] MEDS ORDERED: ONDANSETRON 4MG/2ML VIAL IV ONE (06:35)
[2021-04-16] MEDS ORDERED: MORPHINE 4 MG/ML 1ML VIAL/SYRINGE (J2270) IV ONE (06:35)
[2021-04-16] MEDS ORDERED: NS 1,000 ML IV ONE (06:35)
[2021-04-16] MEDS ORDERED: ISOVUE-370 76% 100ML VIAL As Ordered ONE (06:36)
[2021-04-16 07:11] LABS: INR 2.16; PROTHROMBIN TIME 24.5 SECONDS (12.7-14.5)
[2021-04-16] MEDS ORDERED: PIPERACILLIN/TAZOBACTAM SOD 3.375 GM in D5W MINI-BAG PLUS 50 ML IV ONE (08:00)
[2021-04-16] MEDS: METOPROLOL SUCC *XL* 25MG TAB (TopROL *XL*) PO SCH (09:00)
[2021-04-16] MEDS: NS 1,000 ML IV SCH ×2 (09:50→22:18)
[2021-04-16] MEDS ORDERED: METF-839 PO (10:15)
[2021-04-16] MEDS ORDERED: WARF4TAB52 PO (10:17)
[2021-04-16] MEDS ORDERED: PRAV10TA3 PO (10:18)
[2021-04-16] MEDS ORDERED: AMLO1TAB24 PO (10:18)
[2021-04-16] MEDS ORDERED: HOME MED LIST COMPLETE! XX SCH (10:20)
[2021-04-16] MEDS ORDERED: ONDANSETRON 4MG/2ML VIAL IV PRN (12:50)
[2021-04-16] MEDS: PIPERACILLIN/TAZOBACTAM SOD 3.375 GM in D5W MINI-BAG PLUS 50 ML IV SCH ×2 (14:00→22:18)
[2021-04-16 21:27] VITALS: BP 149/67
[2021-04-16] MEDS ORDERED: GLUCAGON INJ 1MG VIAL SC PRN (21:50)
[2021-04-16] MEDS ORDERED: DEXTROSE 50% 50 ML SYRINGE IV PRN (21:50)
[2021-04-16] MEDS ORDERED: GLUCOSE 4GM CHEW TABLET PO PRN (21:50)
[2021-04-16] MEDS: MORPHINE 4 MG/ML 1ML VIAL/SYRINGE (J2270) IV PRN (22:19)
[2021-04-17] VITALS (9 sets, daily range): BP systolic 111–139; BP diastolic 55–90
[2021-04-17] MEDS: PIPERACILLIN/TAZOBACTAM SOD 3.375 GM in D5W MINI-BAG PLUS 50 ML IV SCH ×4 (01:27→21:26)
[2021-04-17 01:31] LABS: RSV AMPLIFICATION NEGATIVE (NEGATIVE)
[2021-04-17] MEDS: HumaLOG INSULIN (NovoLOG) PER UNIT SC SCH ×4 (06:00→18:00)
[2021-04-17 06:16] LABS: BASO % 0.6 % (0.0-1.0); EOS # 0.2 10^3/uL (0.0-0.5); EOS % 2.5 % (0.0-3.0); HEMATOCRIT 35.4 % (42.0-52.0); HEMOGLOBIN 11.5 g/dl (13.5-17.5); LYMPH # 0.8 10^3/uL (1.5-5.0); LYMPH % 11.7 % (24.0-44.0); MEAN CORPUSCULAR HGB CONC 32.5 g/dl (32.0-36.5); MEAN CORPUSCULAR VOLUME 95.4 fl (80.0-96.0); MONO # 0.7 10^3/uL (0.0-0.8); MONO % 10.4 % (2.0-8.0); NEUTROPHILS # 5.1 10^3/uL (1.5-8.5); NEUTROPHILS % 73.6 % (36.0-66.0); PLATELET COUNT, AUTOMATED 194 10^3/uL (150-450); RED BLOOD COUNT 3.71 10^6/uL (4.30-6.10); WHITE BLOOD COUNT 6.9 10^3/uL (4.0-10.0)
[2021-04-17 06:29] LABS: INR 2.08; PROTHROMBIN TIME 23.8 SECONDS (12.7-14.5)
[2021-04-17 06:31] LABS: BLOOD UREA NITROGEN 17 MG/DL (7-18); CALCIUM LEVEL 8.5 MG/DL (8.8-10.2); CARBON DIOXIDE LEVEL 27 MEQ/L (21-32); CHLORIDE LEVEL 108 MEQ/L (98-107); CREATININE FOR GFR 0.83 MG/DL (0.70-1.30); GLOMERULAR FILTRATION RATE > 60.0 (>49); GLUCOSE, FASTING 119 MG/DL (70-100); POTASSIUM SERUM 4.8 MEQ/L (3.5-5.1); SODIUM LEVEL 140 MEQ/L (136-145)
[2021-04-17 07:30] LABS: HEMOGLOBIN A1c 6.8 %
[2021-04-17] MEDS: METOPROLOL SUCC *XL* 25MG TAB (TopROL *XL*) PO SCH (07:53)
[2021-04-17] MEDS: NS 1,000 ML IV SCH ×3 (07:53→21:26)
[2021-04-17] MEDS: PANTOPRAZOLE 40MG VIAL (C9113 PER 1) IV SCH (07:54)
[2021-04-17] MEDS ORDERED: ROCURONIUM BROMIDE 50 MG/5 ML VIAL As Ordered ONE ×2 (15:31→17:11)
[2021-04-17] MEDS ORDERED: fentaNYL 100 MCG/2 ML INJECTION As Ordered ONE ×2 (15:31→18:55)
[2021-04-17] MEDS ORDERED: LIDOCAINE 2% 100MG/5ML SDV (FOR ANES.) As Ordered ONE (15:31)
[2021-04-17] MEDS ORDERED: MIDAZOLAM INJ 2MG/2ML VIAL (J2250 PER 1MG) As Ordered ONE (15:31)
[2021-04-17] MEDS ORDERED: propofoL 200 MG/20 ML VIAL As Ordered ONE (15:31)
[2021-04-17] MEDS ORDERED: dexameTHASONE 4 MG/ML 1ML VIAL (J1100 PER 1MG) As Ordered ONE (16:08)
[2021-04-17] MEDS ORDERED: ACETAMINOPHEN 1000MG 100ML IV BTL (OFIRMEV) (J0131 PER 10MG) As Ordered ONE (16:22)
[2021-04-17] MEDS ORDERED: HYDROmorphone HCL 2MG/ML 1ML VIAL As Ordered ONE (16:22)
[2021-04-17] MEDS ORDERED: METOCLOPRAMIDE INJ 10MG/2ML VIAL (J2765 PER 1) As Ordered ONE (16:26)
[2021-04-17] MEDS ORDERED: ONDANSETRON 4MG/2ML VIAL As Ordered ONE (16:26)
[2021-04-17] MEDS ORDERED: SUGAMMADEX SODIUM 500 MG/5 ML VIAL (BRIDION) As Ordered ONE (16:26)
[2021-04-17] MEDS ORDERED: LABETALOL 100MG/20ML VIAL As Ordered ONE (16:28)
[2021-04-17] MEDS ORDERED: hydrALAZINE 20MG/ML 1ML VIAL (J0360 PER 20MG) As Ordered ONE (17:01)
[2021-04-17] MEDS ORDERED: BUPIVACAINE HCL 0.25% 30ML VIAL As Ordered ONE (18:45)
[2021-04-17] MEDS ORDERED: LIDOCAINE 1% SDV 30ML VIAL As Ordered ONE (18:45)
[2021-04-17] MEDS ORDERED: oxyCODONE 5MG TAB PO PRN (19:00)
[2021-04-17] MEDS ORDERED: LR 1,000 ML IV SCH (19:00)
[2021-04-17] MEDS ORDERED: ONDANSETRON 4MG/2ML VIAL IV PRN (19:00)
[2021-04-17] MEDS: fentaNYL 100 MCG/2 ML INJECTION IV PRN ×4 (19:01→19:21)
[2021-04-17] MEDS: MORPHINE 4 MG/ML 1ML VIAL/SYRINGE (J2270) IV PRN (21:27)
[2021-04-18] VITALS (7 sets, daily range): BP systolic 111–152; BP diastolic 54–65
[2021-04-18] MEDS: PIPERACILLIN/TAZOBACTAM SOD 3.375 GM in D5W MINI-BAG PLUS 50 ML IV SCH ×4 (00:58→20:31)
[2021-04-18] MEDS: KETOROLAC 30 MG/ML 1ML VIAL IV PRN ×3 (00:58→20:32)
[2021-04-18] MEDS: HumaLOG INSULIN (NovoLOG) PER UNIT SC SCH ×4 (06:00→18:36)
[2021-04-18 06:24] LABS: BASO % 0.1 % (0.0-1.0); EOS % 0.1 % (0.0-3.0); HEMATOCRIT 32.6 % (42.0-52.0); HEMOGLOBIN 10.8 g/dl (13.5-17.5); LYMPH # 0.8 10^3/uL (1.5-5.0); LYMPH % 9.5 % (24.0-44.0); MEAN CORPUSCULAR HEMOGLOBIN 31.3 pg (27.0-33.0); MEAN CORPUSCULAR HGB CONC 33.1 g/dl (32.0-36.5); MEAN CORPUSCULAR VOLUME 94.5 fl (80.0-96.0); MONO # 0.7 10^3/uL (0.0-0.8); NEUTROPHILS % 81.5 % (36.0-66.0); PLATELET COUNT, AUTOMATED 210 10^3/uL (150-450); RED BLOOD COUNT 3.45 10^6/uL (4.30-6.10); WHITE BLOOD COUNT 8.5 10^3/uL (4.0-10.0)
[2021-04-18 06:33] LABS: INR 2.1
[2021-04-18 07:01] LABS: ALBUMIN 2.4 GM/DL (3.2-5.2); ALT/SGPT 126 U/L (12-78); BILIRUBIN,TOTAL 0.5 MG/DL (0.2-1.0); BLOOD UREA NITROGEN 17 MG/DL (7-18); CALCIUM LEVEL 8.2 MG/DL (8.8-10.2); CARBON DIOXIDE LEVEL 23 MEQ/L (21-32); CHLORIDE LEVEL 108 MEQ/L (98-107); CREATININE FOR GFR 0.85 MG/DL (0.70-1.30); GLOMERULAR FILTRATION RATE > 60.0 (>49); GLUCOSE, FASTING 145 MG/DL (70-100); SODIUM LEVEL 137 MEQ/L (136-145); TOTAL PROTEIN 5.8 GM/DL (6.4-8.2)
[2021-04-18] MEDS: METOPROLOL SUCC *XL* 25MG TAB (TopROL *XL*) PO SCH (09:16)
[2021-04-18] MEDS: PANTOPRAZOLE 40MG VIAL (C9113 PER 1) IV SCH (09:17)
[2021-04-18] MEDS: MORPHINE 4 MG/ML 1ML VIAL/SYRINGE (J2270) IV PRN ×2 (12:40→22:43)
[2021-04-19 02:00] VITALS: BP 123/64
[2021-04-19] MEDS: PIPERACILLIN/TAZOBACTAM SOD 3.375 GM in D5W MINI-BAG PLUS 50 ML IV SCH ×4 (02:25→20:23)
[2021-04-19 05:43] VITALS: BP 126/53
[2021-04-19] MEDS: HumaLOG INSULIN (NovoLOG) PER UNIT SC SCH ×4 (06:00→18:14)
[2021-04-19] MEDS ORDERED: MOM 30ML SUSPENSION UDC PO ONE ×2 (07:00→15:40)
[2021-04-19 07:09] LABS: BASO % 0.3 % (0.0-1.0); EOS # 0.2 10^3/uL (0.0-0.5); EOS % 1.6 % (0.0-3.0); HEMATOCRIT 31.5 % (42.0-52.0); HEMOGLOBIN 10.3 g/dl (13.5-17.5); LYMPH # 0.9 10^3/uL (1.5-5.0); LYMPH % 9.9 % (24.0-44.0); MEAN CORPUSCULAR HGB CONC 32.7 g/dl (32.0-36.5); MEAN CORPUSCULAR VOLUME 94.9 fl (80.0-96.0); MONO # 0.7 10^3/uL (0.0-0.8); MONO % 7.3 % (2.0-8.0); NEUTROPHILS # 7.2 10^3/uL (1.5-8.5); NEUTROPHILS % 78.6 % (36.0-66.0); PLATELET COUNT, AUTOMATED 235 10^3/uL (150-450); RED BLOOD COUNT 3.32 10^6/uL (4.30-6.10); WHITE BLOOD COUNT 9.1 10^3/uL (4.0-10.0)
[2021-04-19 07:20] LABS: INR 1.93; PROTHROMBIN TIME 22.5 SECONDS (12.7-14.5)
[2021-04-19 07:33] LABS: ALBUMIN 2.3 GM/DL (3.2-5.2); ALT/SGPT 77 U/L (12-78); BILIRUBIN,TOTAL 0.5 MG/DL (0.2-1.0); BLOOD UREA NITROGEN 18 MG/DL (7-18); CALCIUM LEVEL 8.4 MG/DL (8.8-10.2); CARBON DIOXIDE LEVEL 27 MEQ/L (21-32); CHLORIDE LEVEL 108 MEQ/L (98-107); CREATININE FOR GFR 0.88 MG/DL (0.70-1.30); GLOMERULAR FILTRATION RATE > 60.0 (>49); GLUCOSE, FASTING 145 MG/DL (70-100); POTASSIUM SERUM 4.1 MEQ/L (3.5-5.1); SODIUM LEVEL 139 MEQ/L (136-145); TOTAL PROTEIN 5.9 GM/DL (6.4-8.2)
[2021-04-19] MEDS: PANTOPRAZOLE 40MG VIAL (C9113 PER 1) IV SCH (09:21)
[2021-04-19] MEDS: METOPROLOL SUCC *XL* 25MG TAB (TopROL *XL*) PO SCH (09:25)
[2021-04-19] MEDS: MORPHINE 4 MG/ML 1ML VIAL/SYRINGE (J2270) IV PRN (09:36)
[2021-04-19 10:00] VITALS: BP 146/71
[2021-04-19] MEDS: KETOROLAC 30 MG/ML 1ML VIAL IV PRN ×2 (13:58→20:21)
[2021-04-19 14:00] VITALS: BP 156/72
[2021-04-19] MEDS: TAMSULOSIN 0.4 MG CAP PO SCH (15:04)
[2021-04-19] MEDS: amLODIPine 5 MG TAB PO SCH (15:05)
[2021-04-19] MEDS: WARFARIN SOD 2MG TAB PO SCH (16:29)
[2021-04-19] MEDS: SIMETHICONE 80MG CHEW TAB PO SCH ×2 (16:29→20:21)
[2021-04-19 20:27] VITALS: BP 136/66
[2021-04-20] MEDS: HumaLOG INSULIN (NovoLOG) PER UNIT SC SCH ×4 (00:27→17:00)
[2021-04-20 02:10] VITALS: BP 121/51
[2021-04-20] MEDS: PIPERACILLIN/TAZOBACTAM SOD 3.375 GM in D5W MINI-BAG PLUS 50 ML IV SCH (02:38)
[2021-04-20] MEDS: oxyCODONE 5MG TAB PO PRN ×3 (02:38→21:56)
[2021-04-20 05:44] VITALS: BP 125/55
[2021-04-20 06:16] LABS: BASO % 0.5 % (0.0-1.0); EOS # 0.3 10^3/uL (0.0-0.5); EOS % 2.9 % (0.0-3.0); HEMATOCRIT 33.7 % (42.0-52.0); HEMOGLOBIN 11.1 g/dl (13.5-17.5); LYMPH # 1.3 10^3/uL (1.5-5.0); LYMPH % 14.5 % (24.0-44.0); MEAN CORPUSCULAR HGB CONC 32.9 g/dl (32.0-36.5); MEAN CORPUSCULAR VOLUME 94.1 fl (80.0-96.0); MONO # 0.6 10^3/uL (0.0-0.8); NEUTROPHILS # 6.1 10^3/uL (1.5-8.5); NEUTROPHILS % 71.1 % (36.0-66.0); PLATELET COUNT, AUTOMATED 280 10^3/uL (150-450); RED BLOOD COUNT 3.58 10^6/uL (4.30-6.10); WHITE BLOOD COUNT 8.6 10^3/uL (4.0-10.0)
[2021-04-20 06:36] LABS: INR 1.69; PROTHROMBIN TIME 20.3 SECONDS (12.7-14.5)
[2021-04-20 06:43] LABS: BLOOD UREA NITROGEN 17 MG/DL (7-18); CALCIUM LEVEL 8.7 MG/DL (8.8-10.2); CARBON DIOXIDE LEVEL 28 MEQ/L (21-32); CHLORIDE LEVEL 105 MEQ/L (98-107); CREATININE FOR GFR 0.78 MG/DL (0.70-1.30); GLOMERULAR FILTRATION RATE > 60.0 (>49); GLUCOSE, FASTING 135 MG/DL (70-100); POTASSIUM SERUM 3.6 MEQ/L (3.5-5.1); SODIUM LEVEL 140 MEQ/L (136-145)
[2021-04-20] MEDS: LevoFLOXacin IV 750 MG in IV 1 EA IV SCH (08:15)
[2021-04-20] MEDS: PANTOPRAZOLE 40MG VIAL (C9113 PER 1) IV SCH (08:15)
[2021-04-20] MEDS: SIMETHICONE 80MG CHEW TAB PO SCH ×3 (08:15→21:50)
[2021-04-20] MEDS: TAMSULOSIN 0.4 MG CAP PO SCH (08:16)
[2021-04-20] MEDS: METOPROLOL SUCC *XL* 25MG TAB (TopROL *XL*) PO SCH (08:18)
[2021-04-20] MEDS: amLODIPine 5 MG TAB PO SCH (08:18)
[2021-04-20 14:00] VITALS: BP 133/64
[2021-04-20] MEDS: guaiFENesin ER 600 MG TAB PO SCH (16:18)
[2021-04-20] MEDS: WARFARIN SOD 2MG TAB PO SCH (16:19)
[2021-04-20 22:02] VITALS: BP 137/63
[2021-04-21] MEDS: oxyCODONE 5MG TAB PO PRN (05:34)
[2021-04-21 06:00] VITALS: BP 135/82
[2021-04-21 06:52] LABS: BASO % 0.5 % (0.0-1.0); EOS # 0.2 10^3/uL (0.0-0.5); EOS % 2.3 % (0.0-3.0); HEMATOCRIT 33.1 % (42.0-52.0); HEMOGLOBIN 10.7 g/dl (13.5-17.5); LYMPH # 1.2 10^3/uL (1.5-5.0); LYMPH % 13.6 % (24.0-44.0); MEAN CORPUSCULAR HEMOGLOBIN 30.7 pg (27.0-33.0); MEAN CORPUSCULAR HGB CONC 32.3 g/dl (32.0-36.5); MEAN CORPUSCULAR VOLUME 95.1 fl (80.0-96.0); MONO # 0.6 10^3/uL (0.0-0.8); MONO % 7.3 % (2.0-8.0); NEUTROPHILS # 6.5 10^3/uL (1.5-8.5); NEUTROPHILS % 74.6 % (36.0-66.0); PLATELET COUNT, AUTOMATED 303 10^3/uL (150-450); RED BLOOD COUNT 3.48 10^6/uL (4.30-6.10); WHITE BLOOD COUNT 8.7 10^3/uL (4.0-10.0)
[2021-04-21 07:00] LABS: INR 1.7; PROTHROMBIN TIME 20.4 SECONDS (12.7-14.5)
[2021-04-21 07:13] LABS: BLOOD UREA NITROGEN 12 MG/DL (7-18); CARBON DIOXIDE LEVEL 28 MEQ/L (21-32); CHLORIDE LEVEL 105 MEQ/L (98-107); CREATININE FOR GFR 0.72 MG/DL (0.70-1.30); GLOMERULAR FILTRATION RATE > 60.0 (>49); GLUCOSE, FASTING 130 MG/DL (70-100); POTASSIUM SERUM 3.8 MEQ/L (3.5-5.1); SODIUM LEVEL 139 MEQ/L (136-145)
[2021-04-21 07:14] LABS: CALCIUM LEVEL 8.9 MG/DL (8.8-10.2)
[2021-04-21] MEDS ORDERED: HumaLOG INSULIN (NovoLOG) PER UNIT SC SCH ×2 (07:30→21:00)
[2021-04-21] MEDS: PANTOPRAZOLE 40MG VIAL (C9113 PER 1) IV SCH (08:09)
[2021-04-21] MEDS: LevoFLOXacin IV 750 MG in IV 1 EA IV SCH (08:09)
[2021-04-21] MEDS: SIMETHICONE 80MG CHEW TAB PO SCH (08:10)
[2021-04-21] MEDS: TAMSULOSIN 0.4 MG CAP PO SCH (08:10)
[2021-04-21 08:11] VITALS: BP 136/65
[2021-04-21] MEDS: guaiFENesin ER 600 MG TAB PO SCH (08:11)
[2021-04-21] MEDS: amLODIPine 5 MG TAB PO SCH (08:11)
[2021-04-21] MEDS: METOPROLOL SUCC *XL* 25MG TAB (TopROL *XL*) PO SCH (08:12)
[2021-04-21] MEDS ORDERED: MI-A80CH PO (10:57)
[2021-04-21] MEDS ORDERED: OXYC-517 PO (10:57)
[2021-04-21] MEDS ORDERED: LEVO750T13 PO (10:57)
[2021-04-21] MEDS ORDERED: ACET325C5 PO (11:00)
== END 2021-04-21 12:11 | disposition home or self-care (01) | DRG 418 ==
LOC: M ED 04:52 → M ED INP 09:46 → ENRESERV 19:26 → M MSPAV 21:27
PROVIDERS: ADMIT Internal Medicine Nephrology; ATTEND Internal Medicine Nephrology
PROC: 0FT44ZZ Resection of Gallbladder, Percutaneous Endoscopic Approach (ICD-10-PCS; principal; 2021-04-17 16:00)
DX: K80.00 Calculus of gallbladder with acute cholecystitis without obstruction (principal); K91.89 Other postprocedural complications and disorders of digestive system; K82.A1 Gangrene of gallbladder in cholecystitis; Z95.2 Presence of prosthetic heart valve; I10 Essential (primary) hypertension; N40.0 Benign prostatic hyperplasia without lower urinary tract symptoms; E78.5 Hyperlipidemia, unspecified; E11.9 Type 2 diabetes mellitus without complications; M54.9 Dorsalgia, unspecified; M06.9 Rheumatoid arthritis, unspecified; M19.90 Unspecified osteoarthritis, unspecified site; K21.9 Gastro-esophageal reflux disease without esophagitis; Z90.49 Acquired absence of other specified parts of digestive tract; G47.33 Obstructive sleep apnea (adult) (pediatric); G25.81 Restless legs syndrome; R91.1 Solitary pulmonary nodule; M10.9 Gout, unspecified; Z79.84 Long term (current) use of oral hypoglycemic drugs; Z79.01 Long term (current) use of anticoagulants; Z79.899 Other long term (current) drug therapy; Z87.891 Personal history of nicotine dependence; Z20.822 Contact with and (suspected) exposure to COVID-19; Z85.51 Personal history of malignant neoplasm of bladder

== ENCOUNTER → 2021-06-27 | Outpatient (REF) | payer MEDICARE ==
[~2021-06-27] MED LIST changes: +ACET325C5 PO; +AMLO1TAB24 PO; +LEVO750T13 PO; +METF-839 PO; +MI-A80CH PO; +OXYC-517 PO; +PRAV10TA3 PO; +WARF4TAB52 PO
[2021-06-27 12:48] LABS: ALBUMIN 3.8 GM/DL (3.2-5.2); ALT/SGPT 28 U/L (12-78); BILIRUBIN,TOTAL 0.4 MG/DL (0.2-1.0); BLOOD UREA NITROGEN 20 MG/DL (7-18); CALCIUM LEVEL 9.7 MG/DL (8.8-10.2); CARBON DIOXIDE LEVEL 34 MEQ/L (21-32); CHLORIDE LEVEL 104 MEQ/L (98-107); GLOMERULAR FILTRATION RATE > 60.0 (>49); GLUCOSE, FASTING 148 MG/DL (70-100); POTASSIUM SERUM 4.7 MEQ/L (3.5-5.1); SODIUM LEVEL 139 MEQ/L (136-145); TOTAL PROTEIN 6.8 GM/DL (6.4-8.2)
[2021-06-27 13:06] LABS: HEMOGLOBIN A1c 5.9 %
== END ==
LOC: M SFHCADAM 09:02
PROVIDERS: ATTEND Family Medicine
DX: E11.69 Type 2 diabetes mellitus with other specified complication (principal)

== ENCOUNTER → 2021-07-17 | Outpatient (CLI) | payer MEDICARE ==
[~2021-07-17] MED LIST changes: +ISOVUE-370 76% 100ML VIAL ONE
== END ==
LOC: M PLAIMG 11:12
PROVIDERS: ATTEND Family Medicine
DX: R91.1 Solitary pulmonary nodule (principal)
CPT/HCPCS: 71260; Q9967

== ENCOUNTER 2021-08-13 10:38 | Emergency (ER) | payer MEDICARE ==
[~2021-08-13] VITALS: Ht 172.7 cm; Wt 84.1 kg
[~2021-08-13 10:38] MED LIST changes: -ISOVUE-370 76% 100ML VIAL ONE
[2021-08-13 16:46] LABS: BASO # 0.1 10^3/uL (0.0-0.2); BASO % 0.7 % (0.0-1.0); EOS # 0.1 10^3/uL (0.0-0.5); HEMATOCRIT 45.8 % (42.0-52.0); HEMOGLOBIN 15.5 g/dl (13.5-17.5); LYMPH # 1.5 10^3/uL (1.5-5.0); LYMPH % 20.7 % (24.0-44.0); MEAN CORPUSCULAR HEMOGLOBIN 30.8 pg (27.0-33.0); MEAN CORPUSCULAR HGB CONC 33.8 g/dl (32.0-36.5); MEAN CORPUSCULAR VOLUME 91.1 fl (80.0-96.0); MONO # 0.5 10^3/uL (0.0-0.8); MONO % 7.5 % (2.0-8.0); NEUTROPHILS % 69.8 % (36.0-66.0); PLATELET COUNT, AUTOMATED 182 10^3/uL (150-450); RED BLOOD COUNT 5.03 10^6/uL (4.30-6.10); WHITE BLOOD COUNT 7.2 10^3/uL (4.0-10.0)
[2021-08-13 17:02] LABS: INR 2.41; PROTHROMBIN TIME 26.6 SECONDS (12.7-14.5)
[2021-08-13 17:15] LABS: BLOOD UREA NITROGEN 15 MG/DL (7-18); CALCIUM LEVEL 10.2 MG/DL (8.8-10.2); CARBON DIOXIDE LEVEL 30 MEQ/L (21-32); CHLORIDE LEVEL 102 MEQ/L (98-107); CREATININE FOR GFR 0.81 MG/DL (0.70-1.30); GLOMERULAR FILTRATION RATE > 60.0 (>49); GLUCOSE, FASTING 139 MG/DL (70-100); POTASSIUM SERUM 4.5 MEQ/L (3.5-5.1); SODIUM LEVEL 139 MEQ/L (136-145)
[2021-08-13] MEDS ORDERED: HYDR-3713 PO (17:58)
[2021-08-13] MEDS ORDERED: MEDR4PAK PO (17:58)
[2021-08-13 18:09] VITALS: BP 139/94
== END 2021-08-13 18:13 | disposition home or self-care (01) ==
LOC: M ED 10:38
DX: M50.30 Other cervical disc degeneration, unspecified cervical region (principal); M54.12 Radiculopathy, cervical region; M19.012 Primary osteoarthritis, left shoulder; I10 Essential (primary) hypertension; E11.9 Type 2 diabetes mellitus without complications; F03.90 Unspecified dementia, unspecified severity, without behavioral disturbance, psychotic disturbance, mood disturbance, and anxiety; G47.30 Sleep apnea, unspecified; R91.1 Solitary pulmonary nodule; K21.9 Gastro-esophageal reflux disease without esophagitis; Z85.59 Personal history of malignant neoplasm of other urinary tract organ; Z79.899 Other long term (current) drug therapy; Z79.84 Long term (current) use of oral hypoglycemic drugs; Z79.01 Long term (current) use of anticoagulants

== ENCOUNTER → 2021-09-10 | Outpatient (CLI) | payer MEDICARE ==
[~2021-09-10] MED LIST changes: +HYDR-3713 PO; +MEDR4PAK PO
== END ==
LOC: M PLAIMG 06:51
PROVIDERS: ATTEND Orthopaedic Surgery
DX: Z53.9 Procedure and treatment not carried out, unspecified reason (principal)

== ENCOUNTER → 2021-10-22 | Outpatient (CLI) | payer MEDICARE ==
[~2021-10-22] MED LIST changes: +LEVO1TAB40 PO; -LEVO750T13 PO
== END ==
LOC: M PLAIMG 07:38
PROVIDERS: ATTEND Orthopaedic Surgery
DX: M54.12 Radiculopathy, cervical region (principal); M50.30 Other cervical disc degeneration, unspecified cervical region

== ENCOUNTER → 2021-11-05 | Outpatient (REF) | payer MEDICARE ==
[2021-11-05 13:52] LABS: ALBUMIN 3.8 GM/DL (3.2-5.2); ALT/SGPT 30 U/L (12-78); BILIRUBIN,TOTAL 0.5 MG/DL (0.2-1.0); BLOOD UREA NITROGEN 15 MG/DL (7-18); CALCIUM LEVEL 9.3 MG/DL (8.8-10.2); CARBON DIOXIDE LEVEL 28 MEQ/L (21-32); CHLORIDE LEVEL 106 MEQ/L (98-107); CREATININE FOR GFR 0.84 MG/DL (0.70-1.30); GLOMERULAR FILTRATION RATE > 60.0 (>49); GLUCOSE, FASTING 126 MG/DL (70-100); POTASSIUM SERUM 4.5 MEQ/L (3.5-5.1); SODIUM LEVEL 138 MEQ/L (136-145)
[2021-11-05 18:31] LABS: HEMOGLOBIN A1c 6.2 %
== END ==
LOC: M SFHCADAM 09:28
PROVIDERS: ATTEND Family Medicine
DX: E11.9 Type 2 diabetes mellitus without complications (principal)

== ENCOUNTER → 2022-05-26 | Outpatient (REF) | payer MEDICARE ==
[2022-05-26 14:22] LABS: BASO # 0.1 10^3/uL (0.0-0.2); BASO % 0.8 % (0.0-1.0); EOS # 0.1 10^3/uL (0.0-0.5); EOS % 2.2 % (0.0-3.0); HEMATOCRIT 43.7 % (42.0-52.0); HEMOGLOBIN 15.1 g/dl (13.5-17.5); LYMPH # 1.7 10^3/uL (1.5-5.0); LYMPH % 27.5 % (24.0-44.0); MEAN CORPUSCULAR HEMOGLOBIN 32.2 pg (27.0-33.0); MEAN CORPUSCULAR HGB CONC 34.6 g/dl (32.0-36.5); MEAN CORPUSCULAR VOLUME 93.2 fl (80.0-96.0); MONO # 0.6 10^3/uL (0.0-0.8); MONO % 9.5 % (2.0-8.0); NEUTROPHILS # 3.8 10^3/uL (1.5-8.5); NEUTROPHILS % 59.7 % (36.0-66.0); PLATELET COUNT, AUTOMATED 187 10^3/uL (150-450); RED BLOOD COUNT 4.69 10^6/uL (4.30-6.10); WHITE BLOOD COUNT 6.3 10^3/uL (4.0-10.0)
[2022-05-26 14:31] LABS: ALBUMIN 4.1 G/DL (3.2-5.2); ALKALINE PHOSPHATASE 56 U/L (46-116); ALT/SGPT 28 U/L (7.0-40); AST/SGOT 21 U/L (<34); BILIRUBIN,TOTAL 0.5 MG/DL (0.3-1.2); BLOOD UREA NITROGEN 20 MG/DL (9-23); CALCIUM LEVEL 9.1 MG/DL (8.3-10.6); CARBON DIOXIDE LEVEL 29 MMOL/L (20-31); CHLORIDE LEVEL 101 MMOL/L (98-107); CHOLESTEROL LEVEL 214 MG/DL (<200); CHOLESTEROL RISK RATIO 6.38 (<5); CREATININE FOR GFR 0.81 MG/DL (0.70-1.30); GLOMERULAR FILTRATION RATE > 60.0 (>42); GLUCOSE, FASTING 155 MG/DL (74-106); HDL CHOLESTEROL 33.5 MG/DL (>40); NON-HDL-C 180.5 MG/DL; POTASSIUM SERUM 4.6 MMOL/L (3.5-5.1); SODIUM LEVEL 134 MMOL/L (136-145); TOTAL PROTEIN 6.9 G/DL (5.7-8.2); TRIGLYCERIDES LEVEL 930 MG/DL (<150)
[2022-05-26 14:35] LABS: HEMOGLOBIN A1c 6.5 % (4.0-6.0)
== END ==
LOC: M SFHCADAM 08:59
PROVIDERS: ATTEND Family Medicine
DX: Z00.00 Encounter for general adult medical examination without abnormal findings (principal); E11.9 Type 2 diabetes mellitus without complications

== ENCOUNTER → 2022-07-11 | Outpatient (REF) | payer MEDICARE ==
[2022-07-11 14:03] LABS: CHOLESTEROL LEVEL 206 MG/DL (<200); CHOLESTEROL RISK RATIO 6.22 (<5); HDL CHOLESTEROL 33.1 MG/DL (>40); NON-HDL-C 172.9 MG/DL; TRIGLYCERIDES LEVEL 847 MG/DL (<150)
== END ==
LOC: M SFHCADAM 07:11
PROVIDERS: ATTEND Family Medicine
DX: E78.1 Pure hyperglyceridemia (principal)

== ENCOUNTER → 2022-07-11 | Outpatient (CLI) | payer MEDICARE | LOC: M ADAMS 07:17 | PROVIDERS: ATTEND Family Medicine | DX: R05.3 Chronic cough (principal); Z95.1 Presence of aortocoronary bypass graft; J94.8 Other specified pleural conditions; I70.0 Atherosclerosis of aorta ==

== ENCOUNTER → 2022-08-22 | Outpatient (REF) | payer MEDICARE ==
[2022-08-22 13:13] LABS: ALKALINE PHOSPHATASE 52 U/L (46-116); ALT/SGPT 21 U/L (7.0-40); AST/SGOT 15 U/L (<34); BILIRUBIN,TOTAL 0.5 MG/DL (0.3-1.2); BLOOD UREA NITROGEN 17 MG/DL (9-23); CALCIUM LEVEL 9.9 MG/DL (8.3-10.6); CARBON DIOXIDE LEVEL 29 MMOL/L (20-31); CHLORIDE LEVEL 103 MMOL/L (98-107); CREATININE FOR GFR 0.87 MG/DL (0.70-1.30); GLOMERULAR FILTRATION RATE > 60.0 (>42); GLUCOSE, FASTING 121 MG/DL (74-106); POTASSIUM SERUM 5.1 MMOL/L (3.5-5.1); SODIUM LEVEL 138 MMOL/L (136-145); TOTAL PROTEIN 6.7 G/DL (5.7-8.2)
[2022-08-22 13:39] LABS: HEMOGLOBIN A1c 6.2 % (4.0-6.0)
== END ==
LOC: M SFHCADAM 12:26
PROVIDERS: ATTEND Family Medicine
DX: E11.9 Type 2 diabetes mellitus without complications (principal)

== ENCOUNTER → 2022-08-27 | Outpatient (REF) | payer MEDICARE | LOC: M SFHCADAM 10:18 | PROVIDERS: ATTEND Family Medicine | DX: E11.9 Type 2 diabetes mellitus without complications (principal) ==

== ENCOUNTER → 2023-03-20 | Outpatient (REF) | payer MEDICARE ==
[2023-03-20 13:40] LABS: HEMOGLOBIN A1c 6.4 % (4.0-6.0)
[2023-03-20 13:42] LABS: ALBUMIN 3.9 G/DL (3.2-5.2); ALKALINE PHOSPHATASE 48 U/L (46-116); ALT/SGPT 22 U/L (7.0-40); AST/SGOT 12 U/L (<34); BILIRUBIN,TOTAL 0.4 MG/DL (0.3-1.2); BLOOD UREA NITROGEN 18 MG/DL (9-23); CALCIUM LEVEL 9.3 MG/DL (8.3-10.6); CARBON DIOXIDE LEVEL 28 MMOL/L (20-31); CHLORIDE LEVEL 103 MMOL/L (98-107); CREATININE FOR GFR 0.71 MG/DL (0.70-1.30); GLOMERULAR FILTRATION RATE > 60.0 (>42); GLUCOSE, FASTING 160 MG/DL (74-106); POTASSIUM SERUM 4.7 MMOL/L (3.5-5.1); SODIUM LEVEL 135 MMOL/L (136-145); TOTAL PROTEIN 6.5 G/DL (5.7-8.2)
== END ==
LOC: M SFHCADAM 08:15
PROVIDERS: ATTEND Family Medicine
DX: E11.9 Type 2 diabetes mellitus without complications (principal)

== ENCOUNTER → 2023-03-23 | Outpatient (CLI) | payer MEDICARE | LOC: M ADAMS 13:10 | PROVIDERS: ATTEND Family Medicine | DX: M17.11 Unilateral primary osteoarthritis, right knee (principal); M11.261 Other chondrocalcinosis, right knee; M25.461 Effusion, right knee ==

== ENCOUNTER → 2023-03-23 | Outpatient (REF) | payer MEDICARE ==
[2023-03-23 16:30] LABS: BASO # 0.1 10^3/uL (0.0-0.2); BASO % 0.7 % (0.0-1.0); EOS # 0.2 10^3/uL (0.0-0.5); EOS % 2.3 % (0.0-3.0); HEMATOCRIT 42.2 % (42.0-52.0); HEMOGLOBIN 14.8 g/dl (13.5-17.5); LYMPH # 1.9 10^3/uL (1.5-5.0); LYMPH % 20.2 % (24.0-44.0); MEAN CORPUSCULAR HEMOGLOBIN 32.8 pg (27.0-33.0); MEAN CORPUSCULAR HGB CONC 35.1 g/dl (32.0-36.5); MEAN CORPUSCULAR VOLUME 93.6 fl (80.0-96.0); MONO # 0.9 10^3/uL (0.0-0.8); MONO % 9.5 % (2.0-8.0); NEUTROPHILS # 6.3 10^3/uL (1.5-8.5); PLATELET COUNT, AUTOMATED 196 10^3/uL (150-450); RED BLOOD COUNT 4.51 10^6/uL (4.30-6.10); WHITE BLOOD COUNT 9.4 10^3/uL (4.0-10.0)
[2023-03-23 16:31] LABS: URIC ACID 5.4 MG/DL (3.7-9.2)
[2023-03-23 16:33] LABS: C REACTIVE PROTEIN QUANTITATIV < 0.40 MG/DL (<1.0)
[2023-03-23 16:35] LABS: ERYTHROCYTE SEDIMENTATION RATE 9 mm/hr (0-20)
== END ==
LOC: M SFHCADAM 12:08
PROVIDERS: ATTEND Family Medicine
DX: M25.561 Pain in right knee (principal)

== ENCOUNTER → 2023-04-03 | Outpatient (REF) | payer MEDICARE ==
[2023-04-03 13:29] LABS: APPEARANCE, URINE HAZY (CLEAR); BACTERIA, URINE AUTO NEGATIVE (NEGATIVE); BILIRUBIN, URINE AUTO NEGATIVE (NEGATIVE); BLOOD, URINE BLOOD NEGATIVE (NEGATIVE); CALCIUM OXALATE CRYSTALS SMALL; COLOR, URINE AMBER (YELLOW); GLUCOSE, URINE (UA) AUTO NEGATIVE (NEGATIVE); KETONE, URINE AUTO NEGATIVE (NEGATIVE); LEUKOCYTE ESTERASE, URINE AUTO NEGATIVE (NEGATIVE); MUCUS, URINE SMALL (NEGATIVE); NITRITE, URINE AUTO NEGATIVE (NEGATIVE); PROTEIN, URINE AUTO 1+ mg/dL (NEGATIVE); RBC, URINE AUTO 0 /HPF (0-3); SPECIFIC GRAVITY URINE AUTO 1.038 (1.002-1.035); SQUAMOUS EPITHELIAL CELL UR AU 0 /HPF (0-6); UROBILINOGEN, URINE AUTO 0.2 mg/dL (0.0-2.0); WBC, URINE AUTO 2 /HPF (0-3)
== END ==
LOC: M SFHCADAM 11:36
PROVIDERS: ATTEND Physician Assistant
DX: R31.0 Gross hematuria (principal)

== ENCOUNTER → 2023-04-15 | Outpatient (REF) | payer MEDICARE ==
[2023-04-15 22:44] LABS: PSA SCREENING 1.23 NG/ML (< 4.00)
[2023-04-15 22:46] LABS: BLOOD UREA NITROGEN 16 MG/DL (9-23); CALCIUM LEVEL 9.1 MG/DL (8.3-10.6); CARBON DIOXIDE LEVEL 30 MMOL/L (20-31); CHLORIDE LEVEL 102 MMOL/L (98-107); CREATININE FOR GFR 0.68 MG/DL (0.70-1.30); GLOMERULAR FILTRATION RATE > 60.0 (>42); GLUCOSE, FASTING 111 MG/DL (74-106); POTASSIUM SERUM 4.3 MMOL/L (3.5-5.1); SODIUM LEVEL 136 MMOL/L (136-145)
== END ==
LOC: M SFHCADAM 14:54
PROVIDERS: ATTEND Physician Assistant
DX: Z87.898 Personal history of other specified conditions (principal); Z12.5 Encounter for screening for malignant neoplasm of prostate
CPT/HCPCS: 80048; G0103

== ENCOUNTER → 2023-04-27 | Outpatient (CLI) | payer MEDICARE ==
[~2023-04-27] MED LIST changes: +ISOVUE-370 76% 100ML VIAL As Ordered ONE; -KLON0.5T PO; +KLON0.5T8 PO
== END ==
LOC: M RAD 11:51
PROVIDERS: ATTEND Physician Assistant
DX: N43.3 Hydrocele, unspecified (principal); K57.90 Diverticulosis of intestine, part unspecified, without perforation or abscess without bleeding; R36.1 Hematospermia; Z87.898 Personal history of other specified conditions; N50.811 Right testicular pain; N50.812 Left testicular pain
CPT/HCPCS: 74178; 76870; 93976; Q9967

== ENCOUNTER → 2023-05-14 | Outpatient (REF) | payer MEDICARE ==
[~2023-05-14] MED LIST changes: -ISOVUE-370 76% 100ML VIAL As Ordered ONE
[2023-05-14 17:49] LABS: APPEARANCE, URINE CLEAR (CLEAR); BACTERIA, URINE AUTO NEGATIVE (NEGATIVE); BILIRUBIN, URINE AUTO NEGATIVE (NEGATIVE); BLOOD, URINE BLOOD NEGATIVE (NEGATIVE); COLOR, URINE YELLOW (YELLOW); GLUCOSE, URINE (UA) AUTO 1+ mg/dL (NEGATIVE); KETONE, URINE AUTO NEGATIVE (NEGATIVE); LEUKOCYTE ESTERASE, URINE AUTO NEGATIVE (NEGATIVE); MUCUS, URINE SMALL (NEGATIVE); NITRITE, URINE AUTO NEGATIVE (NEGATIVE); PROTEIN, URINE AUTO NEGATIVE (NEGATIVE); RBC, URINE AUTO 3 /HPF (0-3); SPECIFIC GRAVITY URINE AUTO 1.025 (1.002-1.035); SQUAMOUS EPITHELIAL CELL UR AU 0 /HPF (0-6); UROBILINOGEN, URINE AUTO 0.2 mg/dL (0.0-2.0); WBC, URINE AUTO 2 /HPF (0-3)
== END ==
LOC: M SMT 16:57
PROVIDERS: ATTEND Physician Assistant
DX: Z85.51 Personal history of malignant neoplasm of bladder (principal)

== ENCOUNTER → 2023-06-19 | Outpatient (REF) | payer MEDICARE ==
[2023-06-19 13:22] LABS: HEMOGLOBIN A1c 6.5 % (4.0-6.0)
[2023-06-19 13:36] LABS: ALBUMIN 3.6 G/DL (3.2-5.2); ALKALINE PHOSPHATASE 52 U/L (46-116); ALT/SGPT 26 U/L (7.0-40); AST/SGOT 21 U/L (<34); BILIRUBIN,TOTAL 0.4 MG/DL (0.3-1.2); BLOOD UREA NITROGEN 16 MG/DL (9-23); CALCIUM LEVEL 9.5 MG/DL (8.3-10.6); CARBON DIOXIDE LEVEL 28 MMOL/L (20-31); CHLORIDE LEVEL 104 MMOL/L (98-107); CREATININE FOR GFR 0.73 MG/DL (0.70-1.30); GLOMERULAR FILTRATION RATE > 60.0 (>42); GLUCOSE, FASTING 184 MG/DL (74-106); POTASSIUM SERUM 4.8 MMOL/L (3.5-5.1); SODIUM LEVEL 138 MMOL/L (136-145); TOTAL PROTEIN 6.4 G/DL (5.7-8.2)
== END ==
LOC: M SFHCADAM 09:50
PROVIDERS: ATTEND Family Medicine
DX: E11.9 Type 2 diabetes mellitus without complications (principal)

== ENCOUNTER → 2023-09-09 | Outpatient (CLI) | payer MEDICARE ==
[2023-09-09 19:19] LABS: BLOOD UREA NITROGEN 23 MG/DL (9-23); CALCIUM LEVEL 9.6 MG/DL (8.3-10.6); CARBON DIOXIDE LEVEL 30 MMOL/L (20-31); CHLORIDE LEVEL 103 MMOL/L (98-107); CREATININE FOR GFR 0.83 MG/DL (0.70-1.30); GLOMERULAR FILTRATION RATE > 60.0 (>42); GLUCOSE, FASTING 135 MG/DL (74-106); POTASSIUM SERUM 4.5 MMOL/L (3.5-5.1); SODIUM LEVEL 137 MMOL/L (136-145)
== END ==
LOC: M PLALAB 15:23
PROVIDERS: ATTEND Physician Assistant Medical
DX: R25.2 Cramp and spasm (principal)

== ENCOUNTER → 2023-09-16 | Outpatient (REF) | payer MEDICARE ==
[2023-09-16 14:10] LABS: ALKALINE PHOSPHATASE 48 U/L (46-116); ALT/SGPT 21 U/L (7.0-40); AST/SGOT 9 U/L (<34); BILIRUBIN,TOTAL 0.5 MG/DL (0.3-1.2); BLOOD UREA NITROGEN 17 MG/DL (9-23); CALCIUM LEVEL 9.5 MG/DL (8.3-10.6); CARBON DIOXIDE LEVEL 29 MMOL/L (20-31); CHLORIDE LEVEL 105 MMOL/L (98-107); CREATININE FOR GFR 0.81 MG/DL (0.70-1.30); GLOMERULAR FILTRATION RATE > 60.0 (>42); GLUCOSE, FASTING 135 MG/DL (74-106); POTASSIUM SERUM 5.2 MMOL/L (3.5-5.1); SODIUM LEVEL 137 MMOL/L (136-145); TOTAL PROTEIN 6.7 G/DL (5.7-8.2)
[2023-09-16 14:11] LABS: CREATININE, URINE 82.2 MG/DL; MALB URINE SIEMENS < 3.0 MG/L; MAU/CREAT RATIO 3.6 MCG/MG (0.0-30.0)
[2023-09-16 14:16] LABS: HEMOGLOBIN A1c 6.2 % (4.0-6.0)
== END ==
LOC: M SFHCADAM 07:17
PROVIDERS: ATTEND Family Medicine
DX: E11.9 Type 2 diabetes mellitus without complications (principal)

== ENCOUNTER → 2023-12-08 | Outpatient (CLI) | payer MEDICARE ==
[~2023-12-08] MED LIST changes: +GABA-1172 PO; -GABA-282 PO
== END ==
LOC: M RAD 10:57
PROVIDERS: ATTEND Family Medicine
DX: R22.31 Localized swelling, mass and lump, right upper limb (principal)

== ENCOUNTER → 2023-12-16 | Outpatient (REF) | payer MEDICARE ==
[2023-12-16 13:28] LABS: ALBUMIN 3.9 G/DL (3.2-5.2); ALKALINE PHOSPHATASE 58 U/L (46-116); ALT/SGPT 22 U/L (7.0-40); AST/SGOT 11 U/L (<34); BILIRUBIN,TOTAL 0.4 MG/DL (0.3-1.2); BLOOD UREA NITROGEN 19 MG/DL (9-23); CALCIUM LEVEL 10.1 MG/DL (8.3-10.6); CARBON DIOXIDE LEVEL 31 MMOL/L (20-31); CHLORIDE LEVEL 102 MMOL/L (98-107); GLOMERULAR FILTRATION RATE > 60.0 (>42); GLUCOSE, FASTING 164 MG/DL (74-106); POTASSIUM SERUM 4.8 MMOL/L (3.5-5.1); PSA SCREENING 1.02 NG/ML (< 4.00); SODIUM LEVEL 135 MMOL/L (136-145); TOTAL PROTEIN 6.9 G/DL (5.7-8.2)
[2023-12-16 13:44] LABS: HEMOGLOBIN A1c 6.2 % (4.0-6.0)
== END ==
LOC: M SFHCADAM 09:29
PROVIDERS: ATTEND Family Medicine
DX: E11.9 Type 2 diabetes mellitus without complications (principal); C67.9 Malignant neoplasm of bladder, unspecified
CPT/HCPCS: 80053; 83036; G0103

== ENCOUNTER → 2024-04-04 | Outpatient (CLI) | payer MEDICARE ==
[~2024-04-04] MED LIST changes: +ISOVUE-370 76% 100ML VIAL As Ordered ONE
== END ==
LOC: M RAD 07:16
PROVIDERS: ATTEND Nurse Practitioner Family
DX: I73.9 Peripheral vascular disease, unspecified (principal); R25.2 Cramp and spasm
CPT/HCPCS: 75635; Q9967

== ENCOUNTER → 2024-04-13 | Outpatient (REF) | payer MEDICARE ==
[~2024-04-13] MED LIST changes: -ISOVUE-370 76% 100ML VIAL As Ordered ONE
== END ==
LOC: M SFHCADAM 17:30
PROVIDERS: ATTEND Family Medicine
DX: E11.69 Type 2 diabetes mellitus with other specified complication (principal)

== ENCOUNTER → 2024-05-05 | Outpatient (REF) | payer MEDICARE ==
[2024-05-05 19:35] LABS: ALBUMIN 3.8 G/DL (3.2-5.2); ALKALINE PHOSPHATASE 44 U/L (40-129); ALT/SGPT 20 U/L (7.0-40); AST/SGOT 10 U/L (<34); BILIRUBIN,TOTAL 0.4 MG/DL (0.3-1.2); BLOOD UREA NITROGEN 23 MG/DL (9-23); CALCIUM LEVEL 9.8 MG/DL (8.3-10.6); CARBON DIOXIDE LEVEL 29 MMOL/L (20-31); CHLORIDE LEVEL 103 MMOL/L (98-107); CREATININE FOR GFR 0.78 MG/DL (0.70-1.30); GLOMERULAR FILTRATION RATE > 60.0 (>42); GLUCOSE, FASTING 136 MG/DL (74-106); SODIUM LEVEL 137 MMOL/L (136-145); TOTAL PROTEIN 6.7 G/DL (5.7-8.2)
[2024-05-05 20:02] LABS: HEMOGLOBIN A1c 6.8 % (4.0-6.0)
== END ==
LOC: M SFHCADAM 11:06
PROVIDERS: ATTEND Family Medicine
DX: E11.69 Type 2 diabetes mellitus with other specified complication (principal)

== ENCOUNTER → 2024-05-31 | Outpatient (REF) | payer MEDICARE | LOC: M SFHCADAM 11:10 | PROVIDERS: ATTEND Family Medicine | DX: Z53.9 Procedure and treatment not carried out, unspecified reason (principal) ==

== ENCOUNTER → 2024-09-22 | Outpatient (REF) | payer MEDICARE ==
[~2024-09-22] MED LIST changes: -FLOM0.4C39 PO; -PRAV10TA3 PO; +PRAV10TA43 PO; +TAMS-18 PO
== END ==
LOC: M SFHCPLAZ 17:29
PROVIDERS: ATTEND Student in an Organized Health Care Education/Training Program
DX: L72.3 Sebaceous cyst (principal); L08.9 Local infection of the skin and subcutaneous tissue, unspecified

== ENCOUNTER → 2024-09-29 | Outpatient (CLI) | payer MEDICARE | LOC: M PLAIMG 13:00 | PROVIDERS: ATTEND Student in an Organized Health Care Education/Training Program | DX: M70.21 Olecranon bursitis, right elbow (principal); Y93.9 Activity, unspecified; Y92.9 Unspecified place or not applicable ==

== ENCOUNTER → 2024-12-01 | Outpatient (REF) | payer MEDICARE ==
[2024-12-01 13:27] LABS: ALT/SGPT 24 U/L (7.0-40); AST/SGOT 20 U/L (<34); CALCIUM LEVEL 9.5 MG/DL (8.3-10.6); CARBON DIOXIDE LEVEL 30 MMOL/L (20-31); CHLORIDE LEVEL 100 MMOL/L (98-107); CREATININE FOR GFR 0.77 MG/DL (0.70-1.30); GLOMERULAR FILTRATION RATE > 90.0 (>42); POTASSIUM SERUM 4.4 MMOL/L (3.5-5.1); SODIUM LEVEL 137 MMOL/L (136-145)
[2024-12-01 16:34] LABS: ESTIMATED AVERAGE GLUCOSE 157.0 MG/DL (60-110)
== END ==
LOC: M SFHCADAM 08:46
PROVIDERS: ATTEND Family Medicine
DX: E11.9 Type 2 diabetes mellitus without complications (principal)

== ENCOUNTER 2025-01-05 09:56 | Emergency (ER) | payer MEDICARE ==
[~2025-01-05] VITALS: Ht 172.7 cm; Wt 86.7 kg
[2025-01-05] MEDS ORDERED: PREG150C2 (10:25)
[2025-01-05] MEDS ORDERED: LISI40TA10 (10:25)
[2025-01-05] MEDS ORDERED: OXYC-517 PO (13:25)
[2025-01-05] MEDS ORDERED: MEDR4PAK PO (13:25)
[2025-01-05 13:34] VITALS: BP 169/79; TEMP 96.8; O2SAT 100
== END 2025-01-05 13:39 | disposition home or self-care (01) ==
LOC: M ED 09:56
DX: M25.551 Pain in right hip (principal); E11.9 Type 2 diabetes mellitus without complications; M51.26 Other intervertebral disc displacement, lumbar region; Z79.84 Long term (current) use of oral hypoglycemic drugs; Z79.899 Other long term (current) drug therapy

== ENCOUNTER → 2025-01-24 | Outpatient (REF) | payer MEDICARE ==
[~2025-01-24] MED LIST changes: +LISI40TA10; +PREG150C2
[2025-01-24 14:51] LABS: ALT/SGPT 34 U/L (7.0-40); AST/SGOT 23 U/L (<34); CALCIUM LEVEL 9.7 MG/DL (8.3-10.6); CARBON DIOXIDE LEVEL 30 MMOL/L (20-31); CHLORIDE LEVEL 100 MMOL/L (98-107); CREATININE FOR GFR 0.84 MG/DL (0.70-1.30); GLOMERULAR FILTRATION RATE > 90.0 (>42); POTASSIUM SERUM 4.6 MMOL/L (3.5-5.1); SODIUM LEVEL 139 MMOL/L (136-145)
[2025-01-24 14:58] LABS: CPK CREATINE PHOSPHOKINASE 146 U/L (46-171)
== END ==
LOC: M LABDRWAD 13:02
PROVIDERS: ATTEND Physician Assistant Medical
DX: M79.10 Myalgia, unspecified site (principal)

== ENCOUNTER → 2025-03-06 | Outpatient (REF) | payer MEDICARE ==
[2025-03-06 18:17] LABS: ALT/SGPT 22 U/L (7.0-40); AST/SGOT 20 U/L (<34); CALCIUM LEVEL 9.7 MG/DL (8.3-10.6); CARBON DIOXIDE LEVEL 30 MMOL/L (20-31); CHLORIDE LEVEL 100 MMOL/L (98-107); CHOLESTEROL LEVEL 237 MG/DL (<200); CHOLESTEROL RISK RATIO 5.58 (<5); CREATININE FOR GFR 0.76 MG/DL (0.70-1.30); GLOMERULAR FILTRATION RATE > 90.0 (>42); NON-HDL-C 194.6 MG/DL; POTASSIUM SERUM 5.1 MMOL/L (3.5-5.1); SODIUM LEVEL 137 MMOL/L (136-145); TRIGLYCERIDES LEVEL 544 MG/DL (<150)
[2025-03-06 18:38] LABS: ESTIMATED AVERAGE GLUCOSE 148.0 MG/DL (60-110)
== END ==
LOC: M SFHCADAM 13:09
PROVIDERS: ATTEND Family Medicine
DX: E11.69 Type 2 diabetes mellitus with other specified complication (principal); E78.2 Mixed hyperlipidemia